=== PATIENT | female | born 1965 | race Hispanic/Latino ===

== ENCOUNTER 2017-07-25 15:26 | Emergency (ER) | payer MEDICARE ==
[~2017-07-25 15:26] MED LIST: ARIP20TA10 PO; BUSP15TA3 PO; CALC0.5C11 PO; CALC600T12 PO; CARB10DR OS; CARB25DR OP; CHOL200016 PO; CYCL12OS OS; DIVA500T52 PO; DOCU-116 PO; ESOM40CA PO; EZET10 PO; FENO160T16 PO; FISH1CAP49 PO; HYDR-2534 PO; LEVO175T4 PO; LEVO200T5 PO; NITR0.4T SL; POLY17PO3 PO; VALS80TA29 PO; VERA-7 PO; isosorbide PO; multivitamin PO; prednisolone OS
== END 2017-07-25 17:21 | disposition home or self-care (01) ==
LOC: EDH 15:26
DX: S39.82XA Other specified injuries of lower back, initial encounter (principal); S09.8XXA Other specified injuries of head, initial encounter; I10 Essential (primary) hypertension; E07.9 Disorder of thyroid, unspecified; E78.5 Hyperlipidemia, unspecified; K21.9 Gastro-esophageal reflux disease without esophagitis; Z88.6 Allergy status to analgesic agent; Z88.2 Allergy status to sulfonamides; Z88.5 Allergy status to narcotic agent; Z88.8 Allergy status to other drugs, medicaments and biological substances; W18.39XA Other fall on same level, initial encounter; Y93.01 Activity, walking, marching and hiking; Y92.89 Other specified places as the place of occurrence of the external cause; Y99.8 Other external cause status
CPT/HCPCS: 70450; 72100; 72220

== ENCOUNTER → 2022-07-06 | Emergency (ER) | payer MEDICARE ==
[~2022-07-06] VITALS: Ht 157.5 cm; Wt 108.4 kg
[~2022-07-06] MED LIST changes: -ARIP20TA10 PO; +ARIP20TA21 PO; +CALC-1125 PO; -CALC600T12 PO; -EZET10 PO; +EZET10TA13 PO; -HYDR-2534 PO; +HYDR50TA PO; -POLY17PO3 PO; +POLY17PO52 PO; -VALS80TA29 PO; +VALS80TA30 PO; -VERA-7 PO; +VERA240T95 PO
[2022-07-06 16:35] VITALS: BP 142/90
[2022-07-06 17:02] LABS: BASOPHILS % (AUTO) 0.7 % (0.0-5.0); EOSINOPHILS % (AUTO) 5.5 % (0.0-8.0); HEMATOCRIT 35.4 % (36-48); MEAN CORPUSCULAR HEMOGLOBIN 26.4 pg (27.0-33.0); MEAN CORPUSCULAR HGB CONC 32.2 g/dL (32.0-36.0); MEAN CORPUSCULAR VOLUME 81.9 fL (79-99); MONOCYTES % (AUTO) 6.5 % (3.0-13.0); NEUTROPHILS % (AUTO) 63.1 % (40.0-77.0); PLATELET COUNT (AUTO) 280 K/uL (130-400); RED BLOOD CELL COUNT(AUTO) 4.32 MIL/uL (4.00-5.50); RED CELL DISTRIBUTION WIDTH 17.1 % (11.0-15.5); WHITE BLOOD COUNT (AUTO) 8.8 K/uL (4.8-10.8)
[2022-07-06 17:12] LABS: POTASSIUM 3.1 mmol/L (3.5-5.1)
[2022-07-06 17:22] LABS: ALBUMIN 3.5 g/dL (3.5-5.0); TOTAL PROTEIN, SERUM 7.9 g/dL (6.0-8.3)
== END ==
LOC: EDH 16:26
DX: R51.9 Headache, unspecified (principal); Z53.21 Procedure and treatment not carried out due to patient leaving prior to being seen by health care provider
CPT/HCPCS: 36415; 80053; 84484; 85025; 93005

== ENCOUNTER 2022-07-11 01:52 | Emergency (ER) | payer MEDICARE ==
[~2022-07-11] VITALS: Ht 162.6 cm; Wt 99.8 kg
[2022-07-11 01:54] VITALS: BP 119/70
== END 2022-07-11 02:23 | disposition left against medical advice (07) ==
LOC: EDH 01:52
DX: R11.2 Nausea with vomiting, unspecified (principal); R19.7 Diarrhea, unspecified; Z53.21 Procedure and treatment not carried out due to patient leaving prior to being seen by health care provider

== ENCOUNTER 2022-07-19 23:51 | Emergency (ER) | payer MEDICARE ==
[~2022-07-19] VITALS: Ht 157.5 cm; Wt 108.9 kg
[2022-07-20 00:28] LABS: BASOPHILS % (AUTO) 0.5 % (0.0-5.0); EOSINOPHILS % (AUTO) 0.8 % (0.0-8.0); HEMATOCRIT 36.1 % (36-48); LYMPHOCYTES % (AUTO) 20.1 % (21.0-51.0); MEAN CORPUSCULAR HEMOGLOBIN 26.1 pg (27.0-33.0); MEAN CORPUSCULAR HGB CONC 32.7 g/dL (32.0-36.0); MEAN CORPUSCULAR VOLUME 79.9 fL (79-99); MONOCYTES % (AUTO) 7.2 % (3.0-13.0); PLATELET COUNT (AUTO) 361 K/uL (130-400); RED BLOOD CELL COUNT(AUTO) 4.52 MIL/uL (4.00-5.50); RED CELL DISTRIBUTION WIDTH 17.7 % (11.0-15.5)
[2022-07-20 00:38] LABS: CARBON DIOXIDE 30 mmol/L (21-32); CHLORIDE 99 mmol/L (101-111); CREATININE 0.9 mg/dL (0.5-1.5); GLOMERULAR FILTR. RATE CALC 69 mL/min (>60); GLUCOSE,RANDOM 117 mg/dL (70-105); POTASSIUM 3.4 mmol/L (3.5-5.1); SODIUM SERUM 139 mmol/L (136-145); UREA NITROGEN, BLOOD 12 mg/dL (7-18)
[2022-07-20 00:41] LABS: APPEARANCE,URINE CLEAR (CLEAR); BILIRUBIN,URINE NEGATIVE (NEGATIVE); COLOR,URINE YELLOW (YELLOW); GLUCOSE, URINE (UA) NEGATIVE (NEGATIVE); KETONES,URINE NEGATIVE (NEGATIVE); LEUKOCYTE ESTERASE ,URINE NEGATIVE Leu/uL (NEGATIVE); NITRATE,URINE NEGATIVE (NEGATIVE); OCCULT BLOOD,URINE NEGATIVE (NEGATIVE); PH,URINE 5.5 (5.0-8.0); PROTEIN,URINE 20 mg/dL (NEGATIVE); UROBILINOGEN,URINE 0.2 mg/dL (0.2-1.0)
[2022-07-20 00:42] LABS: ALANINE AMINOTRANSFERASE 40 U/L (12-78); ALBUMIN 3.7 g/dL (3.5-5.0); ALCOHOL, BLOOD < 3 mg/dL (0-10); ASPARTATE AMINOTRANSFERASE 50 U/L (10-37); TOTAL PROTEIN, SERUM 8.1 g/dL (6.0-8.3)
[2022-07-20 00:47] LABS: ACETAMINOPHEN < 1 mcg/mL (10-30); SALICYLATE < 2.8 mg/dL (2.8-20.0)
[2022-07-20 00:49] LABS: AMPHET/METH SCREEN,URINE NEGATIVE (NEGATIVE); BARBITURATE SCREEN, URINE NEGATIVE (NEGATIVE); BENZODIAZEPINES SCREEN,URINE NEGATIVE (NEGATIVE); CANNABINOID SCREEN,URINE NEGATIVE (NEGATIVE); COCAINE SCREEN,URINE NEGATIVE (NEGATIVE); OPIATE SCREEN,URINE NEGATIVE (NEGATIVE); PHENCYCLIDINE SCREEN,URINE NEGATIVE (NEGATIVE)
[2022-07-20 01:32] VITALS: BP 156/82
== END 2022-07-20 01:47 | disposition home or self-care (01) ==
LOC: EDH 23:51
DX: F31.9 Bipolar disorder, unspecified (principal); I10 Essential (primary) hypertension; Z88.2 Allergy status to sulfonamides; Z88.6 Allergy status to analgesic agent; Z88.5 Allergy status to narcotic agent; Z88.8 Allergy status to other drugs, medicaments and biological substances; Z79.899 Other long term (current) drug therapy; Z90.49 Acquired absence of other specified parts of digestive tract; Z98.890 Other specified postprocedural states
CPT/HCPCS: 99284; 80053; 80305; 85025; 81003; 36415; G0481; 93005

== ENCOUNTER 2022-07-20 14:34 | Emergency (ER) | payer MEDICARE ==
[~2022-07-20] VITALS: Ht 167.6 cm; Wt 80.7 kg
[2022-07-20 15:16] LABS: APPEARANCE,URINE CLEAR (CLEAR); BILIRUBIN,URINE NEGATIVE (NEGATIVE); COLOR,URINE YELLOW (YELLOW); GLUCOSE, URINE (UA) NEGATIVE (NEGATIVE); KETONES,URINE NEGATIVE (NEGATIVE); LEUKOCYTE ESTERASE ,URINE NEGATIVE Leu/uL (NEGATIVE); NITRATE,URINE NEGATIVE (NEGATIVE); OCCULT BLOOD,URINE NEGATIVE (NEGATIVE); PH,URINE 5.5 (5.0-8.0); PROTEIN,URINE 30 mg/dL (NEGATIVE)
[2022-07-20 15:23] LABS: AMPHET/METH SCREEN,URINE NEGATIVE (NEGATIVE); BARBITURATE SCREEN, URINE NEGATIVE (NEGATIVE); BENZODIAZEPINES SCREEN,URINE POSITIVE (NEGATIVE); CANNABINOID SCREEN,URINE NEGATIVE (NEGATIVE); COCAINE SCREEN,URINE NEGATIVE (NEGATIVE); OPIATE SCREEN,URINE NEGATIVE (NEGATIVE); PHENCYCLIDINE SCREEN,URINE NEGATIVE (NEGATIVE)
[2022-07-20 15:27] LABS: MUCUS,URINE FEW LPF (None Seen); SQUAMOUS EPITHELIAL CELL,UR FEW /HPF (0-2)
[2022-07-20 18:30] VITALS: BP 142/61
== END 2022-07-20 18:50 | disposition left against medical advice (07) ==
LOC: EDH 14:34
DX: F31.9 Bipolar disorder, unspecified (principal); Z79.899 Other long term (current) drug therapy; Z88.2 Allergy status to sulfonamides; Z88.5 Allergy status to narcotic agent; Z88.6 Allergy status to analgesic agent; Z88.8 Allergy status to other drugs, medicaments and biological substances; Z95.5 Presence of coronary angioplasty implant and graft; Z98.890 Other specified postprocedural states
CPT/HCPCS: 80305; 81001; 93005

== ENCOUNTER 2022-07-28 18:11 | Emergency (ER) | payer OTHER, MEDICARE ==
[~2022-07-28] VITALS: Ht 157.5 cm; Wt 86.2 kg
[2022-07-28 19:30] VITALS: BP 141/68
[2022-07-28] MEDS ORDERED: ACETAMINOPHEN 325 MG TAB ONE (19:46)
[2022-07-28] MEDS ORDERED: ACETAMINOPHEN 325 MG TAB PO ONE (20:00)
== END 2022-07-28 19:58 | disposition home or self-care (01) ==
LOC: EDH 18:11
DX: S96.911A Strain of unspecified muscle and tendon at ankle and foot level, right foot, initial encounter (principal); S90.421A Blister (nonthermal), right great toe, initial encounter; I10 Essential (primary) hypertension; F20.9 Schizophrenia, unspecified; F31.9 Bipolar disorder, unspecified; Z79.899 Other long term (current) drug therapy; Z88.2 Allergy status to sulfonamides; Z88.5 Allergy status to narcotic agent; Z88.6 Allergy status to analgesic agent; Z88.8 Allergy status to other drugs, medicaments and biological substances; Z95.5 Presence of coronary angioplasty implant and graft; W01.0XXA Fall on same level from slipping, tripping and stumbling without subsequent striking against object, initial encounter; Y93.89 Activity, other specified; Y92.89 Other specified places as the place of occurrence of the external cause; Y99.8 Other external cause status
CPT/HCPCS: 73610

== ENCOUNTER 2022-07-29 01:22 | Emergency (ER) | payer OTHER, MEDICARE ==
[2022-07-29 03:47] LABS: BASOPHILS % (AUTO) 0.6 % (0.0-5.0); EOSINOPHILS % (AUTO) 1.2 % (0.0-8.0); LYMPHOCYTES % (AUTO) 20.2 % (21.0-51.0); MEAN CORPUSCULAR HEMOGLOBIN 26.3 pg (27.0-33.0); MEAN CORPUSCULAR HGB CONC 31.9 g/dL (32.0-36.0); MEAN CORPUSCULAR VOLUME 82.4 fL (79-99); MONOCYTES % (AUTO) 6.9 % (3.0-13.0); NEUTROPHILS % (AUTO) 70.7 % (40.0-77.0); PLATELET COUNT (AUTO) 303 K/uL (130-400); RED BLOOD CELL COUNT(AUTO) 3.76 MIL/uL (4.00-5.50); RED CELL DISTRIBUTION WIDTH 17.4 % (11.0-15.5)
[2022-07-29 03:58] LABS: CREATININE 0.8 mg/dL (0.5-1.5)
[2022-07-29 04:00] LABS: POTASSIUM 2.7 mmol/L (3.5-5.1)
[2022-07-29 04:02] LABS: TOTAL PROTEIN, SERUM 6.7 g/dL (6.0-8.3)
[2022-07-29 04:23] LABS: APPEARANCE,URINE CLEAR (CLEAR); BILIRUBIN,URINE NEGATIVE (NEGATIVE); COLOR,URINE YELLOW (YELLOW); GLUCOSE, URINE (UA) NEGATIVE (NEGATIVE); KETONES,URINE NEGATIVE (NEGATIVE); LEUKOCYTE ESTERASE ,URINE 500 Leu/uL (NEGATIVE); NITRATE,URINE NEGATIVE (NEGATIVE); OCCULT BLOOD,URINE NEGATIVE (NEGATIVE); PROTEIN,URINE 20 mg/dL (NEGATIVE); UROBILINOGEN,URINE 0.2 mg/dL (0.2-1.0)
[2022-07-29 04:30] LABS: MUCUS,URINE RARE LPF (None Seen); SQUAMOUS EPITHELIAL CELL,UR FEW /HPF (0-2)
[2022-07-29] MEDS ORDERED: POTASSIUM CHLORIDE 10% ELIXIR 20 MEQ/15 ML UDCUP PO ONE (04:30)
[2022-07-29] MEDS ORDERED: CEFTRIAXONE 1G VIAL IVP ONE (05:30)
[2022-07-29] MEDS ORDERED: DOXYCYCLINE HYCLATE 100 MG TABLET PO SCH (05:30)
[2022-07-29] MEDS ORDERED: DIPHENOXYLATE HCL/ATROPINE 2.5/0.025 MG TAB PO ONE (06:30)
[2022-07-29 06:45] VITALS: BP 121/68
== END 2022-07-29 09:36 | disposition left against medical advice (07) ==
LOC: EDH 01:22
DX: E87.6 Hypokalemia (principal); F20.9 Schizophrenia, unspecified; F31.9 Bipolar disorder, unspecified; F41.9 Anxiety disorder, unspecified; I10 Essential (primary) hypertension; I48.91 Unspecified atrial fibrillation; Z79.899 Other long term (current) drug therapy; Z88.2 Allergy status to sulfonamides; Z88.5 Allergy status to narcotic agent; Z88.6 Allergy status to analgesic agent; Z88.8 Allergy status to other drugs, medicaments and biological substances; Z95.5 Presence of coronary angioplasty implant and graft
CPT/HCPCS: 99284; 96374; 80053; 84703; 83690; 85025; 87210; 87088; 87797; 87486; 81001; 36415; 93005; J0696

== ENCOUNTER → 2022-12-04 | Emergency (ER) | payer MEDICARE ==
[~2022-12-04] VITALS: Ht 157.5 cm; Wt 101.6 kg
[2022-12-04 06:08] VITALS: BP 131/83
[2022-12-04 06:41] LABS: BASOPHILS % (AUTO) 0.5 % (0.0-5.0); HEMATOCRIT 35.8 % (36-48); LYMPHOCYTES % (AUTO) 15.9 % (21.0-51.0); MEAN CORPUSCULAR HEMOGLOBIN 24.8 pg (27.0-33.0); MEAN CORPUSCULAR VOLUME 80.1 fL (79-99); MONOCYTES % (AUTO) 7.6 % (3.0-13.0); NEUTROPHILS % (AUTO) 73.4 % (40.0-77.0); PLATELET COUNT (AUTO) 345 K/uL (130-400); RED BLOOD CELL COUNT(AUTO) 4.47 MIL/uL (4.00-5.50); RED CELL DISTRIBUTION WIDTH 18.2 % (11.0-15.5); WHITE BLOOD COUNT (AUTO) 11.2 K/uL (4.8-10.8)
[2022-12-04 07:09] LABS: AMPHET/METH SCREEN,URINE NEGATIVE (NEGATIVE); BARBITURATE SCREEN, URINE NEGATIVE (NEGATIVE); BENZODIAZEPINES SCREEN,URINE NEGATIVE (NEGATIVE); CANNABINOID SCREEN,URINE NEGATIVE (NEGATIVE); COCAINE SCREEN,URINE NEGATIVE (NEGATIVE); OPIATE SCREEN,URINE NEGATIVE (NEGATIVE); PHENCYCLIDINE SCREEN,URINE NEGATIVE (NEGATIVE)
[2022-12-04 07:10] LABS: ALANINE AMINOTRANSFERASE 22 U/L (12-78); ALBUMIN 3.4 g/dL (3.5-5.0); ASPARTATE AMINOTRANSFERASE 23 U/L (10-37); CARBON DIOXIDE 33 mmol/L (21-32); CHLORIDE 102 mmol/L (101-111); CREATININE 0.8 mg/dL (0.5-1.5); GLOMERULAR FILTR. RATE CALC 86 mL/min (>90); GLUCOSE,RANDOM 119 mg/dL (70-105); POTASSIUM 3.2 mmol/L (3.5-5.1); SODIUM SERUM 141 mmol/L (136-145); TOTAL PROTEIN, SERUM 7.9 g/dL (6.0-8.3); UREA NITROGEN, BLOOD 10 mg/dL (7-18)
[2022-12-04 07:30] LABS: APPEARANCE,URINE CLEAR (CLEAR); BILIRUBIN,URINE NEGATIVE (NEGATIVE); COLOR,URINE YELLOW (YELLOW); GLUCOSE, URINE (UA) NEGATIVE (NEGATIVE); KETONES,URINE NEGATIVE (NEGATIVE); LEUKOCYTE ESTERASE ,URINE 25 Leu/uL (NEGATIVE); NITRATE,URINE NEGATIVE (NEGATIVE); OCCULT BLOOD,URINE NEGATIVE (NEGATIVE); PH,URINE 5.5 (5.0-8.0); PROTEIN,URINE 20 mg/dL (NEGATIVE); UROBILINOGEN,URINE 0.2 mg/dL (0.2-1.0)
[2022-12-04 07:51] LABS: MUCUS,URINE FEW LPF (None Seen); RBC,URINE 0-1 /HPF (0-1); SQUAMOUS EPITHELIAL CELL,UR RARE /HPF (0-2)
[2022-12-04 07:53] LABS: SALICYLATE < 2.8 mg/dL (2.8-20.0)
[2022-12-04 07:54] LABS: ACETAMINOPHEN < 1 mcg/mL (10-30)
== END ==
LOC: EDH 05:52
DX: F20.9 Schizophrenia, unspecified (principal); F41.9 Anxiety disorder, unspecified; I10 Essential (primary) hypertension; I48.91 Unspecified atrial fibrillation; Z79.899 Other long term (current) drug therapy; Z88.2 Allergy status to sulfonamides; Z88.5 Allergy status to narcotic agent; Z88.6 Allergy status to analgesic agent; Z88.8 Allergy status to other drugs, medicaments and biological substances; Z95.5 Presence of coronary angioplasty implant and graft
CPT/HCPCS: 99283; 80053; 80305; 85025; 81001; 36415; G0481

== ENCOUNTER 2024-06-30 21:21 | Emergency (ER) | payer MEDICARE ==
[~2024-06-30 21:21] MED LIST changes: -ARIP20TA21 PO; +ARIP20TA63 PO; -EZET10TA13 PO; +EZET10TA81 PO
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
[2024-06-30 22:03] LABS: BASOPHILS # (AUTO) 0.07 K/uL (0.00-0.20); BASOPHILS % (AUTO) 0.7 % (0.0-5.0); EOSINOPHILS # (AUTO) 0.38 K/uL (0.00-0.70); EOSINOPHILS % (AUTO) 3.6 % (0.0-8.0); HEMATOCRIT 29.9 % (36-48); IMMATURE GRANULOCYTE ABSOLUTE 0.07 K/uL (0-1); LYMPHOCYTES # (AUTO) 2.4 K/uL (1.0-4.8); LYMPHOCYTES % (AUTO) 22.2 % (21.0-51.0); MEAN CORPUSCULAR HEMOGLOBIN 29.7 pg (27.0-33.0); MEAN CORPUSCULAR HGB CONC 32.8 g/dL (32.0-36.0); MEAN CORPUSCULAR VOLUME 90.6 fL (79-99); MONOCYTES # (AUTO) 0.8 K/uL (0.1-1.0); MONOCYTES % (AUTO) 7.3 % (3.0-13.0); NEUTROPHILS % (AUTO) 65.5 % (40.0-77.0); PLATELET COUNT (AUTO) 355 K/uL (130-400); RED CELL DISTRIBUTION WIDTH 14.6 % (11.0-15.5); WHITE BLOOD COUNT (AUTO) 10.7 K/uL (4.8-10.8)
--- NOTE | 2024-06-30 22:11 | HMCIMG ---
ANKLE COMP 3VWS RT HISTORY: Right ankle pain COMPARISON: None TECHNIQUE: 3 images of right ankle. FINDINGS: There is no acute displaced fracture or dislocation. There is soft tissue swelling. There is a calcaneal spur. Degenerative changes are seen. IMPRESSION: 1. Findings as described above.
[2024-06-30 22:13] LABS: CREATININE 1.3 mg/dL (0.5-1.0); POTASSIUM 3.6 mmol/L (3.5-5.1)
[2024-06-30] MEDS ORDERED: CEPH500T PO (22:59)
[2024-06-30] MEDS: ceFAZolin SODIUM 1 GM VIAL IVPB ONE (23:03)
[2024-06-30] MEDS: 0.9%NACL 1000ML 1,000 ML IV ONE (23:04)
[2024-06-30] MEDS: acetaMINOPHEN 500 MG TABLET PO ONE (23:04)
[2024-06-30 23:53] LABS: ADD UA MICROSCOPIC NO; APPEARANCE,URINE CLEAR (CLEAR); BILIRUBIN,URINE NEGATIVE (NEGATIVE); COLOR,URINE LIGHT-YELLOW (YELLOW); GLUCOSE, URINE (UA) NEGATIVE (NEGATIVE); KETONES,URINE NEGATIVE (NEGATIVE); LEUKOCYTE ESTERASE ,URINE NEGATIVE Leu/uL (NEGATIVE); NITRATE,URINE NEGATIVE (NEGATIVE); OCCULT BLOOD,URINE NEGATIVE (NEGATIVE); PROTEIN,URINE NEGATIVE (NEGATIVE); UROBILINOGEN,URINE 0.2 mg/dL (0.2-1.0)
--- NOTE | 2024-07-01 00:19 | NUR ---
Called Elvia Soto [phone]. She is unable to come apple picker patient, she took medications that make her too sleepy to drive. Silvina Justin does not have a way to pick her up. Ever Thomson is . and Brandon Akbar does not want to have anything to do with her. As per [place], the patient usually waits in er for the adult day care to pick her up. Patient goes to [facility] adult day care.
[2024-07-01 00:37] VITALS: BP 132/82; PULSE 82; RESP 16; TEMP 98.1; O2SAT 100
== END 2024-07-01 00:40 | disposition home or self-care (01) ==
LOC: EDH 21:21
DX: S96.811A Strain of other specified muscles and tendons at ankle and foot level, right foot, initial encounter (principal); L03.115 Cellulitis of right lower limb; F41.9 Anxiety disorder, unspecified; I10 Essential (primary) hypertension; I25.10 Atherosclerotic heart disease of native coronary artery without angina pectoris; Z79.890 Hormone replacement therapy; Z79.899 Other long term (current) drug therapy; Z88.2 Allergy status to sulfonamides; Z88.5 Allergy status to narcotic agent; Z88.6 Allergy status to analgesic agent; Z88.8 Allergy status to other drugs, medicaments and biological substances; Z90.89 Acquired absence of other organs; Z95.5 Presence of coronary angioplasty implant and graft; Z98.890 Other specified postprocedural states; X58.XXXA Exposure to other specified factors, initial encounter; Y93.89 Activity, other specified; Y92.89 Other specified places as the place of occurrence of the external cause; Y99.8 Other external cause status
CPT/HCPCS: 99284; 96365; 80048; 83880; 85025; 87040 ×2; 81003; 36415; 73610; J0690; J7030

== ENCOUNTER 2024-07-02 11:58 | Emergency (ER) | payer MEDICARE ==
[~2024-07-02] VITALS: Ht 162.6 cm; Wt 81.6 kg
[~2024-07-02 11:58] MED LIST changes: +CEPH500T PO
--- NOTE | 2024-07-02 12:51 | ERN ---
ED Note History of Present Illness Stated Complaint: NOT ON MEDS Chief Complaint: Manic Behavior Time Seen by MD: 12:09 Dictation: PATIENT IS A 58-YEAR-OLD FEMALE WITH A WAS REFERRED [place] [facility] [place]AL POLICE DEPARTMENT BECAUSE SHE HAD BEEN IN A SENIOR CARE AND HAD JUST BEEN DISCHARGED FROM ASSISTED. SHE HAS A PSYCH HISTORY AND WOULD TELL THE POLICE THAT SHE WAS HYPOTHERMIC AND NEEDED TO BE SEEN. SHE DENIES SUICIDAL OR HOMICIDAL IDEATION AT THIS TIME SHE IS CURRENTLY EATING LUNCH WE SPEAK. HOWEVER SHE DOES KEEP REPEATING THAT SHE IS HYPOTHERMIC BECAUSE IT IS COLD OUTSIDE. Patient does state though that she is having auditory hallucinations telling her to hurt somebody. Allergies: Coded Allergies: Sulfa (Sulfonamide Antibiotics) (Unverified Allergy, Unknown, 04/29/16) aspirin (Unverified Allergy, Unknown, 04/29/16) codeine (Unverified Allergy, Unknown, 04/29/16) diphenhydramine (Unverified Allergy, Unknown, 04/29/16) haloperidol (Unverified Allergy, Unknown, 04/29/16) morphine (Unverified Allergy, Unknown, 04/29/16) promethazine (Unverified Allergy, Unknown, 04/29/16) risperidone (Unverified Allergy, Unknown, 04/29/16) Home Meds Active Scripts Cephalexin (Cephalexin) 500 Mg Tablet, 1 TAB PO TID for 10 Days, #30 TAB 0 Refills Prov:SUSAN DAILY MD 06/30/24 Reported Medications Carboxymethyl/Glycerin/Poly80 (Refresh Optive Advanced Drops) 10 Ml Drops, 1 DROP OS DAILY, DROP 04/29/16 Cyclopentolate HCl (Cyclogyl 1% Ophth Soln) 20 Drop/Ml Opsol, 1 DROP OS DAILY, DROP 04/29/16 Cholecalciferol (Vitamin D3) (Vitamin D) 2,000 Unit Tablet, 2000 UNIT PO DAILY, TAB 04/29/16 [multivitamin] No Conflict Check, 1 TAB PO DAILY 04/29/16 Esomeprazole Magnesium (Nexium) 40 Mg Capsule.dr, 40 MG PO DAILY, CAP 04/29/16 Carboxymethylcell/Hypromellose (Genteal Gel Drops) 25 Ml Drp.lq.gel, 10 G OP AD 04/29/16 Fenofibrate (Fenofibrate) 160 Mg Tablet, 160 MG PO HS, TAB 04/29/16 Polyethylene Glycol 3350 (Polyethylene Glycol 3350) 17 Gm Powd.pack, 17 GM PO DAILY, APPL 04/29/16 [prednisolone ] No Conflict Check, 1 % OS QID 1 drop os 04/29/16 Nitroglycerin (Nitrostat) 0.4 Mg Tab.subl, 0.4 MG SL AD, TAB.SL 04/29/16 [isosorbide] No Conflict Check, 30 MG PO HS 04/29/16 Valsartan (Valsartan) 80 Mg Tablet, 0.5 TAB PO DAILY, TAB 04/29/16 [place]-3 Fatty Acids/Fish Oil (Fish Oil 1,000 mg Capsule) 1 Each Capsule, 2 TAB PO BID, CAP 04/29/16 Hydrochlorothiazide (Hydrochlorothiazide) 50 Mg Tablet, 50 MG PO DAILY, TAB 04/29/16 Divalproex Sodium (Divalproex Sodium ER) 500 Mg Tab.er.24h, 3 TAB PO HS, TAB 04/29/16 Aripiprazole (Aripiprazole) 20 Mg Tablet, 20 MG PO HS, TAB 04/29/16 Buspirone HCl (Buspirone HCl) 15 Mg Tablet, 15 MG PO BID, TAB 04/29/16 Docusate Sodium (Colace) 100 Mg Capsule, 100 MG PO TID, CAP 04/29/16 Calcitriol (Calcitriol) 0.5 Mcg Capsule, 0.5 MCG PO BID, CAP 04/29/16 Ezetimibe (Zetia) 10 Mg Tablet, 10 MG PO DAILY, TAB 04/29/16 Levothyroxine Sodium (Synthroid) 175 Mcg Tablet, 175 MCG PO DAILY, TAB sat and sun. 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 Surgical History: Other Surgical History Other: THYROIDECTOMY, CARDIAC STENTS, L RETINAL DETACHMENT, HE RNIA REPAIR Family History: Negative Social History: Negative History: Not Applicable RN Note Reviewed/Agreed w/PFSH: Yes Review of System Dictation CONSTITUTIONAL: Negative except for HPI HEAD/FACE: Negative except for HPI EENT: Negative except for HPI RESPIRATORY: Negative except for HPI GASTROINTESTINAL/ABDOMINAL: Negative except for HPI GENITOURINARY: Negative except for HPI MUSCULOSKELETAL: Negative except for HPI INTEGUMENTARY: Negative except for HPI NEUROLOGICAL/PSYCH: Negative except for HPI auditory hallucinations HEMATOLOGIC/LYMPHATIC: Negative except for HPI All Systems Negative, Except as noted above. 13 point review of systems assessed and all negative except for above. Initial Vital Sign VS Vital Signs Date Time Temp Pulse Resp B/P (MAP) Pulse Ox O2 Delivery O2 Flow Rate FiO2 07/02/24 12:01 98.4 85 14 138/92 99 Room Air 0 Physical Exam Dictation Vital Signs reviewed General Appearance: Alert, oriented x two, no acute distress, well developed, nourished. Head and Face: non-traumatic. Eyes: PERRL, pink conjunctivas, eyelid no trauma, anterior chamber with arcus senilis. Ears: Pinnas intact and no signs of trauma or erythema ear canals clear and no discharge TM no erythema Nose: No discharge, no bleeding. Oropharynx: Mouth normal, tongue pink, pharynx clear,no erythema, tonsils no exudates, no abscesses noted, mucous membrane moist Neck: Supple, non-tender, no thyromegaly, no masses, no JVD, no bruits Breast:Deferred Chest:No tenderness, no crepitus, no paradoxical movement, no retractions Lungs:Clear, well-ventilated, symmetric, no rales, no wheezing, no rhonchi, no stridor, good breath sounds bilaterally Heart: Regular rate, regular rhythm, no murmur, no gallops Vascular: no peripheral edema, Abdomen: Soft, positive bowel sounds, nondistended, no guarding, nontender, no rebound, no masses no hepatomegaly, no splenomegaly, no Ferrell's sign, no hernias. Rectal: Deferred Genital: Deferred Neurological: Normal speech, motor function intact, sensory function intact patient having auditory hallucinations telling her to hurt someone. Nonspecific who the patient is. Musculoskeletal: Neck nontender, full range of motion, back nontender, full range of motion, Extremities: nontender, full range of motion Skin: Color pink, dry, no turgor, no rash, no lacerations, no abrasions, no contusions. Lymphatic: Deferred Results (Laboratory/Radiology) Laboratory/Radiology Laboratory Tests Test 07/02/24 12:34 07/02/24 12:59 Urine Color LIGHT-YELLOW (YELLOW) Urine Appearance CLEAR (CLEAR) Urine pH 5.0 (5.0-8.0) Urine Specific [place] 1.008 (1.001-1.031) Urine Protein NEGATIVE mg/dL (NEGATIVE) Urine Glucose (UA) NEGATIVE mg/dL (NEGATIVE) Urine Ketones NEGATIVE mg/dL (NEGATIVE) Urine Occult Blood NEGATIVE (NEGATIVE) Urine Nitrate NEGATIVE (NEGATIVE) Urine Bilirubin NEGATIVE mg/dL (NEGATIVE) Urine Urobilinogen 0.2 mg/dL (0.2-1.0) Urine Leukocyte Esterase NEGATIVE Carolyn/uL Urine Opiates Screen NEGATIVE (NEGATIVE) Urine Barbiturates Screen NEGATIVE (NEGATIVE) Urine Phencyclidine Screen NEGATIVE (NEGATIVE) Urine Amphetamines Screen NEGATIVE (NEGATIVE) Urine Benzodiazepines Screen NEGATIVE (NEGATIVE) Urine Cocaine Screen NEGATIVE (NEGATIVE) Urine Marijuana (THC) Screen NEGATIVE (NEGATIVE) White Blood Count 9.6 K/uL (4.8-10.8) Red Blood Count 3.32 MIL/uL (4.00-5.50) L Hemoglobin 9.8 g/dL (12.0-16.0) L Hematocrit 30.5 % (36-48) L Mean Corpuscular Volume 91.9 fL (79-99) Mean Corpuscular Hemoglobin 29.5 pg (27.0-33.0) Mean Corpuscular Hemoglobin Concent 32.1 g/dL (32.0-36.0) Red Cell Distribution Width 14.8 % (11.0-15.5) Platelet Count 342 K/uL (130-400) Mean Platelet Volume 9.1 fL (7.5-10.5) Immature Granulocyte % (Auto) 0.5 % (0-1) Neutrophils (%) (Auto) 69.7 % (40.0-77.0) Lymphocytes (%) (Auto) 18.0 % (21.0-51.0) L Monocytes (%) (Auto) 6.4 % (3.0-13.0) Eosinophils (%) (Auto) 4.8 % (0.0-8.0) Basophils (%) (Auto) 0.6 % (0.0-5.0) Neutrophils # (Auto) 6.7 K/uL (1.8-7.7) Lymphocytes # (Auto) 1.7 K/uL (1.0-4.8) Monocytes # (Auto) 0.6 K/uL (0.1-1.0) Eosinophils # (Auto) 0.46 K/uL (0.00-0.70) Basophils # (Auto) 0.06 K/uL (0.00-0.20) Absolute Immature Granulocyte (auto 0.05 K/uL (0-1) Nucleated Red Blood Cells 0.0 % (0.0-0.19) Sodium Level 140 mmol/L (136-145) Potassium Level 3.4 mmol/L (3.5-5.1) L Chloride Level 103 mmol/L (101-111) Carbon Dioxide Level 32 mmol/L (21-32) Blood Urea Nitrogen 22 mg/dL (7-18) H Creatinine 1.0 mg/dL (0.5-1.0) Glomerular Filtration Rate Calc 65 mL/min (>90) Random Glucose 117 mg/dL (70-105) H Total Calcium 6.9 mg/dL (8.5-10.1) L Total Creatine Kinase 358 U/L (21-232) H Salicylates Level < 2.8 mg/dL (2.8-20.0) L Acetaminophen Level < 1 mcg/mL (10-30) L Serum Alcohol < 3 mg/dL (0-10) Labs Reviewed?: Yes ED Course ED Course Orders Procedure Category Date Status Time Drug Screen Urine LAB 07/02/24 Complete 12:49 Cbc With Differential LAB 07/02/24 Complete 12:49 Alcohol, Blood LAB 07/02/24 Complete 12:49 Salicylate LAB 07/02/24 Complete 12:49 Acetaminophen LAB 07/02/24 Complete 12:49 Urinalysis Profile LAB 07/02/24 Complete 12:49 Creatine Kinase, Total LAB 07/02/24 Complete 12:49 Basic Metabolic Panel LAB 07/02/24 Complete 12:49 Vital Signs Date Time Temp Pulse Resp B/P (MAP) Pulse Ox O2 Delivery O2 Flow Rate FiO2 07/02/24 12:01 98.4 85 14 138/92 99 Room Air 0 ONE THOUSAND SIX HUNDRED, PATIENT WAS SCREENED BY Punctil AND DOES NOT MEET CRITERIA FOR INPATIENT PSYCHIATRIC CARE. SHE WILL BE TREATED FOR HYPOKALEMIA DISCHARGED HOME TO HER FAMILY TO FOLLOW UP IN THE NEXT Medical Decision Making MDM MDM: DIFFERENTIAL DIAGNOSIS: SCHIZOPHRENIA/HALLUCINATION/BIPOLAR DECOMPENSATED/ELECTROLYTE IMBALANCE/DEHYDRATION COCAINE ABUSE/UTI RATIONALE: TESTS CONSIDERED AND ORDERED SECONDARY TO SHARED DECISION MAKING INCLUDE: LABS/UA PREVIOUS OUTSIDE RECORDS REVIEWED: OLD ER VISITS. RISK OF COMPLICATION AND/OR MORBIDITY OR MORTALITY OF PATIENT MANAGEMENT: NONE MEDICATIONS-PER MEDICATION RECONCILIATION NEED FOR HOSPITALIZATION: PATIENT DOES NOT MEET CRITERIA FOR HOSPITALIZATION. NONE NEED FOR EMERGENCY MAJOR/MINOR SURGERY: NO THERE ARE NO SOCIAL CONCERNS WITH THIS PATIENT. PRESCRIPTION DRUG MANAGEMENT NONE PRESCRIPTIONS WILL INCLUDE SYMPTOMATIC CARE PATIENT'S PRIOR EXTERNAL MEDICAL RECORDS FROM OTHER ER VISITS WERE REVIEWED BY ME INDICATED. PRIOR TESTING AND RESULTS FROM PREVIOUS VISITS WERE REVIEWED. PRIOR TESTS WERE TAKEN INTO ACCOUNT WITH MEDICAL DECISION MAKING AND RESOURCE UTILIZATION, INDEPENDENT HISTORIAN/HISTORIANS WERE USED TO OBTAIN COMPLETE MEDICAL HISTORY. I INDEPENDENTLY INTERPRETED THE TEST THAT WERE PERFORMED, RESULTS WERE REVIEWED BY ME AND CONSIDERED FINDINGS ON RADIOLOGY IF ORDERED. MEDICAL MANAGEMENT AND EXAMINATION INTERPRETATION DISCUSSIONS WERE HAD BY ME WITH OTHER QUALIFIED HEALTHCARE PROFESSIONALS INDICATED FOR THE PATIENT'S CARE. DX & DISP Disposition: Discharge Departure Impression: Primary Impression: Auditory hallucinations Additional Impressions: Anxiety, Hypokalemia, Elevated CK Condition: Stable Additional Instructions: FOLLOW-UP WITH PRIMARY CARE PROVIDER IN 1 TO 2 DAYS. TAKE MEDICATIONS DIRECTED HERE IN THE EMERGENCY ROOM. OKAY TO CONTINUE HOME MEDICATIONS UNLESS OTHERWISE DISCUSSED DURING YOUR VISIT IN THE EMERGENCY ROOM TODAY. RETURN TO YOUR NEAREST EMERGENCY ROOM IF SYMPTOMS WORSEN OR IF THERE IS NO IMPROVEMENT. CALL 911 IF YOU NEED IMMEDIATE ASSISTANCE. TAKE TYLENOL OR MOTRIN [id number] NEEDED AND IF NO CONTRAINDICATIONS ARE PRESENT. INCREASE ORAL HYDRATION. A WOUND CULTURE OR URINE CULTURE WAS ORDERED HERE IN THE EMERGENCY ROOM DEPARTMENT PLEASE FOLLOW-UP WITH PRIMARY CARE PROVIDER AND ADVISE THEM TO GET REPEAT PORTS FROM OUR FACILITY. IF YOU HAD ANY LOYD WRAP/SPLINTS THAT WERE APPLIED HERE, PLEASE DO NOT REMOVE THEM UNTIL YOU SEE YOUR PRIMARY CARE OR SPECIALTY. DIET AND ACTIVITY TOLERATED FOLLOW UP WITH YOUR PRIMARY CARE DOCTOR IN THE 1- 2 DAYS Referrals: MATTHEW LORD MD (PCP) Time of Disposition: 16:05 I have reviewed the case, and I agree with, Diagnosis and Plan PARTH CONTRERAS NP Jul 02, 2024 12:51
[2024-07-02 13:12] LABS: BASOPHILS # (AUTO) 0.06 K/uL (0.00-0.20); BASOPHILS % (AUTO) 0.6 % (0.0-5.0); EOSINOPHILS # (AUTO) 0.46 K/uL (0.00-0.70); EOSINOPHILS % (AUTO) 4.8 % (0.0-8.0); HEMATOCRIT 30.5 % (36-48); IMMATURE GRANULOCYTE ABSOLUTE 0.05 K/uL (0-1); LYMPHOCYTES # (AUTO) 1.7 K/uL (1.0-4.8); MEAN CORPUSCULAR HEMOGLOBIN 29.5 pg (27.0-33.0); MEAN CORPUSCULAR HGB CONC 32.1 g/dL (32.0-36.0); MEAN CORPUSCULAR VOLUME 91.9 fL (79-99); MONOCYTES # (AUTO) 0.6 K/uL (0.1-1.0); MONOCYTES % (AUTO) 6.4 % (3.0-13.0); NEUTROPHILS # (AUTO) 6.7 K/uL (1.8-7.7); NEUTROPHILS % (AUTO) 69.7 % (40.0-77.0); PLATELET COUNT (AUTO) 342 K/uL (130-400); RED BLOOD CELL COUNT(AUTO) 3.32 MIL/uL (4.00-5.50); RED CELL DISTRIBUTION WIDTH 14.8 % (11.0-15.5); WHITE BLOOD COUNT (AUTO) 9.6 K/uL (4.8-10.8)
[2024-07-02 13:21] LABS: CARBON DIOXIDE 32 mmol/L (21-32); CHLORIDE 103 mmol/L (101-111); GLOMERULAR FILTR. RATE CALC 65 mL/min (>90); GLUCOSE,RANDOM 117 mg/dL (70-105); POTASSIUM 3.4 mmol/L (3.5-5.1); SODIUM SERUM 140 mmol/L (136-145); UREA NITROGEN, BLOOD 22 mg/dL (7-18)
[2024-07-02 13:25] LABS: ALCOHOL, BLOOD < 3 mg/dL (0-10); CREATINE KINASE, TOTAL 358 U/L (21-232)
[2024-07-02 13:26] LABS: ACETAMINOPHEN < 1 mcg/mL (10-30); SALICYLATE < 2.8 mg/dL (2.8-20.0)
[2024-07-02 13:34] LABS: APPEARANCE,URINE CLEAR (CLEAR); BILIRUBIN,URINE NEGATIVE (NEGATIVE); GLUCOSE, URINE (UA) NEGATIVE (NEGATIVE); KETONES,URINE NEGATIVE (NEGATIVE); LEUKOCYTE ESTERASE ,URINE NEGATIVE Leu/uL (NEGATIVE); NITRATE,URINE NEGATIVE (NEGATIVE); OCCULT BLOOD,URINE NEGATIVE (NEGATIVE); PROTEIN,URINE NEGATIVE (NEGATIVE); UROBILINOGEN,URINE 0.2 mg/dL (0.2-1.0)
[2024-07-02 13:36] LABS: ADD UA MICROSCOPIC NO; COLOR,URINE LIGHT-YELLOW (YELLOW)
[2024-07-02 13:42] LABS: AMPHET/METH SCREEN,URINE NEGATIVE (NEGATIVE); BARBITURATE SCREEN, URINE NEGATIVE (NEGATIVE); BENZODIAZEPINES SCREEN,URINE NEGATIVE (NEGATIVE); CANNABINOID SCREEN,URINE NEGATIVE (NEGATIVE); COCAINE SCREEN,URINE NEGATIVE (NEGATIVE); OPIATE SCREEN,URINE NEGATIVE (NEGATIVE); PHENCYCLIDINE SCREEN,URINE NEGATIVE (NEGATIVE)
--- NOTE | 2024-07-02 14:30 | NUR ---
tropical screener in to see pt.
--- NOTE | 2024-07-02 16:07 | NUR ---
pt did not meet criteria and will be discharged.
[2024-07-02 16:09] VITALS: BP 145/84; PULSE 78; RESP 18; TEMP 98.3; O2SAT 98
[2024-07-02] MEDS ORDERED: PoTASSium BIcarbonate/CIT AC 25 MEQ TABLET.EFF PO ONE (16:30)
== END 2024-07-02 16:11 | disposition home or self-care (01) ==
LOC: EDBD 11:58 → EDH 11:58
DX: R44.0 Auditory hallucinations (principal); F41.9 Anxiety disorder, unspecified; E87.6 Hypokalemia; R74.8 Abnormal levels of other serum enzymes; F32.A Depression, unspecified; Z79.890 Hormone replacement therapy; Z79.899 Other long term (current) drug therapy; Z88.2 Allergy status to sulfonamides; Z88.5 Allergy status to narcotic agent; Z88.6 Allergy status to analgesic agent; Z88.8 Allergy status to other drugs, medicaments and biological substances; Z90.89 Acquired absence of other organs; Z95.5 Presence of coronary angioplasty implant and graft; Z98.890 Other specified postprocedural states
CPT/HCPCS: 99283; 82550; 80048; 80305; 85025; 36415; 81003; G0481

== ENCOUNTER 2024-07-02 23:27 | Emergency (ER) | payer MEDICARE ==
[~2024-07-02] VITALS: Ht 157.5 cm; Wt 91.6 kg
[2024-07-02 23:35] VITALS: BP 110/77; PULSE 92; RESP 18; TEMP 98.5; O2SAT 97
--- NOTE | 2024-07-03 00:01 | ERN ---
General Chief Complaint: Multiple Complaints Stated Complaint: MULTIPLE COMPLAINTS Time Seen by MD: 23:44 Time Seen by Midlevel: 23:44 Source: patient History of Present Illness Initial Comments Patient is a 50-year-old female presenting to the emergency department with multiple complaints. According to patient she was released from penitentiary and was kicked out of a halfway for behavioral issues. She called EMS and states she is having multiple complaints. Per EMS, patient reported a sore throat, cough, constipation, headache, leg pain, back pain, vaginal itching, and reports being hungry. When offered a sandwich she states she does not want to sandwich and wants a hot plate. She was seen in our emergency department earlier today for hallucinations where she had an extensive workup done that was all negative. After my evaluation patient states she only wants a ride back home. Allergies: Coded Allergies: Sulfa (Sulfonamide Antibiotics) (Unverified Allergy, Unknown, 04/29/16) aspirin (Unverified Allergy, Unknown, 04/29/16) codeine (Unverified Allergy, Unknown, 04/29/16) diphenhydramine (Unverified Allergy, Unknown, 04/29/16) haloperidol (Unverified Allergy, Unknown, 04/29/16) morphine (Unverified Allergy, Unknown, 04/29/16) promethazine (Unverified Allergy, Unknown, 04/29/16) risperidone (Unverified Allergy, Unknown, 04/29/16) Home Meds Active Scripts Cephalexin (Cephalexin) 500 Mg Tablet, 1 TAB PO TID for 10 Days, #30 TAB 0 Refills Prov:SUSAN DAILY MD 06/30/24 Reported Medications Carboxymethyl/Glycerin/Poly80 (Refresh Optive Advanced Drops) 10 Ml Drops, 1 DROP OS DAILY, DROP 04/29/16 Cyclopentolate HCl (Cyclogyl 1% Ophth Soln) 20 Drop/Ml Opsol, 1 DROP OS DAILY, DROP 04/29/16 Cholecalciferol (Vitamin D3) (Vitamin D) 2,000 Unit Tablet, 2000 UNIT PO DAILY, TAB 04/29/16 [multivitamin] No Conflict Check, 1 TAB PO DAILY 04/29/16 Esomeprazole Magnesium (Nexium) 40 Mg Capsule.dr, 40 MG PO DAILY, CAP 04/29/16 Carboxymethylcell/Hypromellose (Genteal Gel Drops) 25 Ml Drp.lq.gel, 10 G OP AD 04/29/16 Fenofibrate (Fenofibrate) 160 Mg Tablet, 160 MG PO HS, TAB 04/29/16 Polyethylene Glycol 3350 (Polyethylene Glycol 3350) 17 Gm Powd.pack, 17 GM PO DAILY, APPL 04/29/16 [prednisolone ] No Conflict Check, 1 % OS QID 1 drop os 04/29/16 Nitroglycerin (Nitrostat) 0.4 Mg Tab.subl, 0.4 MG SL AD, TAB.SL 04/29/16 [isosorbide] No Conflict Check, 30 MG PO HS 04/29/16 Valsartan (Valsartan) 80 Mg Tablet, 0.5 TAB PO DAILY, TAB 04/29/16 [place]-3 Fatty Acids/Fish Oil (Fish Oil 1,000 mg Capsule) 1 Each Capsule, 2 TAB PO BID, CAP 04/29/16 Hydrochlorothiazide (Hydrochlorothiazide) 50 Mg Tablet, 50 MG PO DAILY, TAB 04/29/16 Divalproex Sodium (Divalproex Sodium ER) 500 Mg Tab.er.24h, 3 TAB PO HS, TAB 04/29/16 Aripiprazole (Aripiprazole) 20 Mg Tablet, 20 MG PO HS, TAB 04/29/16 Buspirone HCl (Buspirone HCl) 15 Mg Tablet, 15 MG PO BID, TAB 04/29/16 Docusate Sodium (Colace) 100 Mg Capsule, 100 MG PO TID, CAP 04/29/16 Calcitriol (Calcitriol) 0.5 Mcg Capsule, 0.5 MCG PO BID, CAP 04/29/16 Ezetimibe (Zetia) 10 Mg Tablet, 10 MG PO DAILY, TAB 04/29/16 Levothyroxine Sodium (Synthroid) 175 Mcg Tablet, 175 MCG PO DAILY, TAB sat and sun. 04/29/16 Levothyroxine Sodium (Synthroid) 200 Mcg Tablet, 200 MCG PO DAILY, TAB mon-thu04/29/16 Verapamil HCl (Verapamil ER) 240 Mg Tablet.er, 240 MG PO DAILY, TAB 04/29/16 Calcium Carbonate (Calcium) 600 Mg Tablet, 600 MG PO TID, TAB 04/29/16 Past Medical History Past Medical History: Anxiety, Depression, Schizophrenia Medical History Other: BLIND LEFT EYE Past Surgical History: Other Surgical History Other: THYROIDECTOMY, CARDIAC STENTS, L RETINAL DETACHMENT, HERNIA REPAIR Family History Family History: Negative Social History Social History: Negative Female( History) History: Not Applicable ROS Dictation CONSTITUTIONAL: Negative except for HPI HEAD/FACE: Negative except for HPI EENT: Negative except for HPI RESPIRATORY: Negative except for HPI GASTROINTESTINAL/ABDOMINAL: Negative except for HPI GENITOURINARY: Negative except for HPI MUSCULOSKELETAL: Negative except for HPI INTEGUMENTARY: Negative except for HPI NEUROLOGICAL/PSYCH: Negative except for HPI HEMATOLOGIC/LYMPHATIC: Negative except for HPI All Systems Negative, Except as noted above. 13 point review of systems assessed and all negative except for above. Physical Exam Physical Exam Dictation PHYSICAL EXAM: GENERAL: alert,, awake oriented x 3 HEENT: EOMI, Sclera non icteric, moist mucosa NECK: Supple, no JVD, trachea midline LUNGS: Clear breath sounds bilaterally. No wheezes HEART: Regular rate and rhythm. Normal S1 and S2, without murmurs ABD: Abdomen soft, nontender. Bowel sounds present EXT: No clubbing or cyanosis, NEURO: Alert and oriented to person, follows commands MDM MDM: Patient is a 50-year-old female presenting to the emergency department with multiple complaints. According to patient she was released from penitentiary and was kicked out of a halfway for behavioral issues. She called EMS and states she is having multiple complaints. Per EMS, patient reported a sore throat, cough, constipation, headache, leg pain, back pain, vaginal itching, and reports being hungry. When offered a sandwich she states she does not want to sandwich and wants a hot plate. She was seen in our emergency department earlier today for hallucinations where she had an extensive workup done that was all negative. After my evaluation patient states she only wants a ride back home. On physical examination patient is in no acute respiratory distress. Her vital signs are stable. Patient just had blood work and urine performed hours ago earlier today. No need to repeat at this time. Her physical examination is reassuring. Patient is only requesting a ride back home. We will be discharging patient at this time. Patient is stable for discharge Differential diagnosis: Malingering, wellness examination, drug-seeking behavior There are no social concerns with this patient. Prescription drug management Prescriptions will include: None Medical management and examination interpretation discussions were had by me with other qualified healthcare professionals as indicated for the patient's care. ED Course Vital Signs Date Time Temp Pulse Resp B/P (MAP) Pulse Ox O2 Delivery O2 Flow Rate FiO2 07/02/24 23:35 98.4 92 18 110/77 97 Room Air 0 07/02/24 23:35 98.4 92 18 110/77 97 Room Air* 0 21 DX & DISP Disposition: Discharge Departure Impression: Primary Impression: Wellness examination Condition: Stable Referrals: MATTHEW LORD MD (PCP) Time of Disposition: 00:01 I have reviewed the case, and I agree with, Diagnosis and Plan I performed the substantive portion of the visit. I have reviewed and personally made and approve the management plan that is documented in the note by myself or the TIM. I acknowledge for responsibility for the patient's manage ment plan. HERB PARKER Jul 03, 2024 00:01
== END 2024-07-03 00:36 | disposition home or self-care (01) ==
LOC: EDH 23:27
DX: J02.9 Acute pharyngitis, unspecified (principal); R05.9 Cough, unspecified; R51.9 Headache, unspecified; R44.0 Auditory hallucinations; R74.8 Abnormal levels of other serum enzymes; E87.6 Hypokalemia; F32.A Depression, unspecified; F41.9 Anxiety disorder, unspecified; Z79.890 Hormone replacement therapy; Z79.899 Other long term (current) drug therapy; Z88.2 Allergy status to sulfonamides; Z88.5 Allergy status to narcotic agent; Z88.6 Allergy status to analgesic agent; Z88.8 Allergy status to other drugs, medicaments and biological substances; Z90.89 Acquired absence of other organs; Z95.5 Presence of coronary angioplasty implant and graft; Z98.890 Other specified postprocedural states
CPT/HCPCS: 82550; 80048; 80305; 85025; 81003; 36415; 99283 ×2; G0481; 99281

== ENCOUNTER 2024-07-04 15:24 | Emergency (ER) | payer MEDICARE ==
[~2024-07-04] VITALS: Ht 157.5 cm; Wt 91.6 kg
--- NOTE | 2024-07-04 15:26 | NUR ---
PER VEL, PT WAS NOT ACCEPTED INTO FACILITY. PT WAS A DROP OFF BY POLICE WITH A SECTION. PT NEEDS TO BE MEDICALLY CLEARED IN ORDER FOR HER TO GET AN ASSESSMENT. PER MARCELO, ONCE PTS HAS CLEARANCE, RESULTS CAN BE FAXED TO [facility] AND PT CAN BE SENT BACK TO FACILITY FOR EVAL SINCE PT HAS A SECTION.
--- NOTE | 2024-07-04 18:05 | ERN ---
General Chief Complaint: Medical Clearance Stated Complaint: MEDICAL CLEARANCE Time Seen by MD: 15:34 Time Seen by Midlevel: 15:34 Source: patient History of Present Illness Initial Comments 58-year-old female who presents to the ED by EMS referred from [facility] for medical clearance. Patient is sectioned for SI, HI, and psychosis. However, upon arriving to [facility] complaint of bilateral ankle pain. PMHx depression, bipolar, anxiety, schizophrenia Allergies: Coded Allergies: Sulfa (Sulfonamide Antibiotics) (Unverified Allergy, Unknown, 04/29/16) aspirin (Unverified Allergy, Unknown, 04/29/16) codeine (Unverified Allergy, Unknown, 04/29/16) diphenhydramine (Unverified Allergy, Unknown, 04/29/16) haloperidol (Unverified Allergy, Unknown, 04/29/16) morphine (Unverified Allergy, Unknown, 04/29/16) promethazine (Unverified Allergy, Unknown, 04/29/16) risperidone (Unverified Allergy, Unknown, 04/29/16) Home Meds Active Scripts Cephalexin (Cephalexin) 500 Mg Tablet, 1 TAB PO TID for 10 Days, #30 TAB 0 Refills Prov:SUSAN DAILY MD 06/30/24 Reported Medications Carboxymethyl/Glycerin/Poly80 (Refresh Optive Advanced Drops) 10 Ml Drops, 1 DROP OS DAILY, DROP 04/29/16 Cyclopentolate HCl (Cyclogyl 1% Ophth Soln) 20 Drop/Ml Opsol, 1 DROP OS DAILY, DROP 04/29/16 Cholecalciferol (Vitamin D3) (Vitamin D) 2,000 Unit Tablet, 2000 UNIT PO DAILY, TAB 04/29/16 [multivitamin] No Conflict Check, 1 TAB PO DAILY 04/29/16 Esomeprazole Magnesium (Nexium) 40 Mg Capsule.dr, 40 MG PO DAILY, CAP 04/29/16 Carboxymethylcell/Hypromellose (Genteal Gel Drops) 25 Ml Drp.lq.gel, 10 G OP AD 04/29/16 Fenofibrate (Fenofibrate) 160 Mg Tablet, 160 MG PO HS, TAB 04/29/16 Polyethylene Glycol 3350 (Polyethylene Glycol 3350) 17 Gm Powd.pack, 17 GM PO DAILY, APPL 04/29/16 [prednisolone ] No Conflict Check, 1 % OS QID 1 drop os 04/29/16 Nitroglycerin (Nitrostat) 0.4 Mg Tab.subl, 0.4 MG SL AD, TAB.SL 04/29/16 [isosorbide] No Conflict Check, 30 MG PO HS 04/29/16 Valsartan (Valsartan) 80 Mg Tablet, 0.5 TAB PO DAILY, TAB 04/29/16 [place]-3 Fatty Acids/Fish Oil (Fish Oil 1,000 mg Capsule) 1 Each Capsule, 2 TAB PO BID, CAP 04/29/16 Hydrochlorothiazide (Hydrochlorothiazide) 50 Mg Tablet, 50 MG PO DAILY, TAB 04/29/16 Divalproex Sodium (Divalproex Sodium ER) 500 Mg Tab.er.24h, 3 TAB PO HS, TAB 04/29/16 Aripiprazole (Aripiprazole) 20 Mg Tablet, 20 MG PO HS, TAB 04/29/16 Buspirone HCl (Buspirone HCl) 15 Mg Tablet, 15 MG PO BID, TAB 04/29/16 Docusate Sodium (Colace) 100 Mg Capsule, 100 MG PO TID, CAP 04/29/16 Calcitriol (Calcitriol) 0.5 Mcg Capsule, 0.5 MCG PO BID, CAP 04/29/16 Ezetimibe (Zetia) 10 Mg Tablet, 10 MG PO DAILY, TAB 04/29/16 Levothyroxine Sodium (Synthroid) 175 Mcg Tablet, 175 MCG PO DAILY, TAB sat and sun. 04/29/16 Levothyroxine Sodium (Synthroid) 200 Mcg Tablet, 200 MCG PO DAILY, TAB mon-thu04/29/16 Verapamil HCl (Verapamil ER) 240 Mg Tablet.er, 240 MG PO DAILY, TAB 04/29/16 Calcium Carbonate (Calcium) 600 Mg Tablet, 600 MG PO TID, TAB 04/29/16 Past Medical History Past Medical History: Anxiety, Bipolar, Depression, Schizophrenia Medical History Other: BLIND LEFT EYE Past Surgical History: Other Surgical History Other: THYROIDECTOMY, CARDIC STENTS, L RETINAL DETACHEMENT Family History Family History: Negative Social History Social History: Negative Female( History) History: Not Applicable ROS Dictation Constitutional: Negative for fever,chills, and weight loss Eyes: Negative for injury, pain,redness, and discharge ENT: Negative for injury,pain or swelling Cardiovascular: Negative for chest pain, palpitations, and edema Respiratory: Negative for shortness of breath, cough, and wheezing, Abdomen/GI: Negative for abdominal pain, nausea, vomiting, diarrhea, and constipation Back: Negative for injury and pain : Negative for painful urination, bleeding or discharge MS/Extremity: Positive for bilateral ankle pain Negative for injury and deformity Skin: Negative for rash, and discoloration Neuro: Negative for headache, weakness, numbness, tingling, and seizure Psych: Negative for suicide ideation, homicidal ideation, and hallucinations Physical Exam Physical Exam Dictation General: awake, alert, no acute distress Head/Face: Normocephalic, atraumatic Eyes: normal conjunctiva ENT: oral mucosa moist Neck: Normal range of motion Cardiovascular: RRR, normal peripheral perfusion Respiratory: CTAB, no respiratory distress Skin: Warm, dry, normal turgor, no rash MS/Extremity: Pulses equal, no cyanosis, neurovascular intact, FROM, bilateral lower extremity edema Neuro: COAx4, GCS 15, normal gait, Psych: Normal behavior, mood, and affect normal Results EKG/XRAY/US/CT/MRI X-RAY Comment REASON: Pain ORDERING PHYSICIAN: LILLIAM BRITO PROCEDURE: ANK3VW LUIS - ANKLE COMP 3+VWS LUIS ANKLE COMP 3+VWS LUIS REASON: Pain. COMPARISON: None TECHNIQUE: 6 images of bilateral ankles were obtained. FINDINGS: Soft tissue swelling is seen. There are bilateral calcaneal spurs. No acute displaced fracture or dislocation is seen. IMPRESSION: Findings at described above. [facility] MDM: Differential diagnosis: Fracture, sprain, strain Rationale: 58-year-old female who presents to the ED by EMS referred from [facility] for medical clearance. Patient is sectioned for SI, HI, and psychosis. However, upon arriving to [facility] complaint of bilateral ankle pain. PMHx depression, bipolar, anxiety, schizophrenia Bilateral ankle x-rays obtained with no indications of fractures or dislocations. Per physical examination patient is not tender upon palpation, bilateral edema noted to lower extremities, patient ambulating without pain. No further workup indicated due to no further symptoms. Patient was educated on findings and diagnosis. Patient is medically cleared for [facility] [employer]. There are no social concerns with this patient. I independently interpreted the test that were performed, results were reviewed by me and considered findings on radiology if ordered. Medical management and examination interpretation discussions were had by me with other qualified healthcare professionals as indicated for the patient's care. ED Course Orders Procedure Category Date Status Time Ankle Comp 3+Vws Luis RAD 07/04/24 Taken 16:10 Vital Signs Date Time Temp Pulse Resp B/P (MAP) Pulse Ox O2 Delivery O2 Flow Rate FiO2 07/04/24 16:19 98.1 88 18 127/73 99 Room Air* 0 21 07/04/24 15:33 97.9 88 19 105/77 98 Room Air 0 DX & DISP Disposition: Discharge Departure Impression: Primary Impression: Bilateral ankle pain Additional Impression: Medical clearance for psychiatric admission Condition: Stable Additional Instructions: Discharge home. Rest. Follow up with primary care DrOfelia in 24 hours. Return to the ER for any acute changes or worsening symptoms. If any medications were prescribed take as directed. Okay to continue home medications unless otherwise discussed during your visit in the emergency room today. Patient was also advised to follow-up with primary care physician in 1 to 2 days for continued monitoring. Referrals: MATTHEW LORD MD (PCP) I participated in the following activities of this patient's care: For this patient encounter, I reviewed the PA or INGOT BUGGY OPERATOR documentation, treatment plan, and medical decision making. I did not have [id number] time with this patient. I will sign as the reviewing DrOfelia And agree with the treatment plan and disposition. LILLIAM BRITO Jul 04, 2024 18:05
--- NOTE | 2024-07-04 18:20 | NUR ---
SPOKE TO STAFF AT [facility], MADE THEM AWARE OF PT MEDICAL CLEARANCE. PER STAFF, PT CAN BE SENT BACK FOR INTAKE ADMISSION EVAL.
--- NOTE | 2024-07-04 18:27 | NUR ---
CALLED [facility] PHONE NUMBERS FOR RIDE TO [place], NO ANSWER.
--- NOTE | 2024-07-04 18:28 | NUR ---
PT IS SECTIONED WITH [facility] TODAY. CALLED [facility] FOR RIDE FOR PT TO [facility]. PER IRON MINER, HE WILL SPEAK TO CANDACE AND WILL GIVE ME A CALL BACK.
--- NOTE | 2024-07-04 18:54 | HMCIMG ---
ANKLE COMP 3+VWS LUIS REASON: Pain. COMPARISON: None TECHNIQUE: 6 images of bilateral ankles were obtained. FINDINGS: Soft tissue swelling is seen. There are bilateral calcaneal spurs. No acute displaced fracture or dislocation is seen. IMPRESSION: Findings at described above.
--- NOTE | 2024-07-04 18:54 | NUR ---
[facility] HERE TO NUCLEAR EQUIPMENT OPERATOR PT AND TRANSFER BACK TO [facility]. OFFICER [facility] #[id number] HERE TO TRANSFER PT.
[2024-07-04 19:13] VITALS: BP 131/68; PULSE 74; RESP 18; TEMP 98.1; O2SAT 98
== END 2024-07-04 19:14 | disposition home or self-care (01) ==
LOC: EDH 15:24
DX: M25.571 Pain in right ankle and joints of right foot (principal); M25.572 Pain in left ankle and joints of left foot; F20.9 Schizophrenia, unspecified; F31.9 Bipolar disorder, unspecified; F41.9 Anxiety disorder, unspecified; Z79.890 Hormone replacement therapy; Z79.899 Other long term (current) drug therapy; Z88.2 Allergy status to sulfonamides; Z88.5 Allergy status to narcotic agent; Z88.6 Allergy status to analgesic agent; Z88.8 Allergy status to other drugs, medicaments and biological substances; Z90.89 Acquired absence of other organs
CPT/HCPCS: 99283

== ENCOUNTER 2024-07-09 02:43 | Emergency (ER) | payer MEDICARE ==
[~2024-07-09] VITALS: Ht 157.5 cm; Wt 91.6 kg
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
--- NOTE | 2024-07-09 04:01 | NUR ---
SPOKE WITH NBA VYAS NURSE AT [facility], WILL ACCEPT PATIENT IF MEDICALLY CLEAR. PATIENT DENIES SI/HI, DENIES A/V HALLUCINATIONS. REPORTED CHRONIC PEDAL EDEMA.
--- NOTE | 2024-07-09 04:12 | NUR ---
[facility] CONTACTED FOR TRANSFER [place] [facility]
[2024-07-09 04:23] VITALS: BP 132/82; PULSE 76; RESP 16; TEMP 97.3; O2SAT 97
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
== END 2024-07-09 04:33 | disposition short-term general hospital (02) ==
LOC: EDH 02:43
DX: T74.21XA Adult sexual abuse, confirmed, initial encounter (principal); F31.9 Bipolar disorder, unspecified; F20.9 Schizophrenia, unspecified; F41.9 Anxiety disorder, unspecified; Z79.890 Hormone replacement therapy; Z79.899 Other long term (current) drug therapy; Z88.2 Allergy status to sulfonamides; Z88.5 Allergy status to narcotic agent; Z88.6 Allergy status to analgesic agent; Z88.8 Allergy status to other drugs, medicaments and biological substances; Z90.89 Acquired absence of other organs; X58.XXXA Exposure to other specified factors, initial encounter; Y93.89 Activity, other specified; Y92.89 Other specified places as the place of occurrence of the external cause; Y99.8 Other external cause status
CPT/HCPCS: 99285

== ENCOUNTER 2024-07-13 02:32 | Emergency (ER) | payer MEDICARE ==
[~2024-07-13] VITALS: Ht 154.9 cm; Wt 68.0 kg
[2024-07-13 02:40] VITALS: BP 136/72; PULSE 64; RESP 16; TEMP 98.1; O2SAT 98
--- NOTE | 2024-07-13 03:04 | ERN ---
ED Note History of Present Illness Stated Complaint: LOWER RIGHT LEG PAIN Chief Complaint: Lower Extremity Pain/Injury Time Seen by MD: 02:58 Dictation: This is a 58-year-old obese female with multiple medical problems came in via EMS complaining of right lower extremity pain which is chronic. So reported bilateral lower extremity edema. No fevers chills or rigors She has been to this ER almost everyday with some complaint or the other. Inquiry her home situation is not stable. She also admits to being noncompliant at times but states that when she takes her medications regularly she feels much better. Temperature 98.4 pulse 64 respirations 16 blood pressure 134/62 with a pulse oximetry of 100% on room air Chronic medical problems include anxiety, bipolar, atrial fibrillation, hypercholesterolemia, hypertension, schizophrenia, coronary artery disease statu s post stents, history of thyroidectomy She has off and on ER visits for diarrhea as she takes and over indulging sometimes with Colace. Her she also claims that she is allergic to multiple medications. Allergies: Coded Allergies: Sulfa (Sulfonamide Antibiotics) (Unverified Allergy, Unknown, 04/29/16) aspirin (Unverified Allergy, Unknown, 04/29/16) codeine (Unverified Allergy, Unknown, 04/29/16) diphenhydramine (Unverified Allergy, Unknown, 04/29/16) haloperidol (Unverified Allergy, Unknown, 04/29/16) morphine (Unverified Allergy, Unknown, 04/29/16) promethazine (Unverified Allergy, Unknown, 04/29/16) risperidone (Unverified Allergy, Unknown, 04/29/16) Home Meds Active Scripts Furosemide (Lasix 40Mg Tab) 40 Mg Tablet, 2 TAB PO DAILY for 10 Days, #30 TAB 0 Refills Prov:SUSAN DAILY MD 07/13/24 Loratadine (Claritin) 10 Mg Capsule, 1 CAP PO DAILY for allergy symptoms for 30 Days, #30 CAP 0 Refills Prov:SUSAN DAILY MD 07/13/24 Fluticasone Propionate (Flonase Allergy Relief) 50 Mcg/Actuation [place].susp, 2 SPRAY NS DAILY for 30 Days, #1 CANISTER 0 Refills Prov:SUSAN DAILY MD 07/13/24 Cephalexin (Cephalexin) 500 Mg Tablet, 1 TAB PO TID for 10 Days, #30 TAB 0 Refills Prov:SUSAN DAILY MD 06/30/24 Reported Medications Carboxymethyl/Glycerin/Poly80 (Refresh Optive Advanced Drops) 10 Ml Drops, 1 DROP OS DAILY, DROP 04/29/16 Cyclopentolate HCl (Cyclogyl 1% Ophth Soln) 20 Drop/Ml Opsol, 1 DROP OS DAILY, DROP 04/29/16 Cholecalciferol (Vitamin D3) (Vitamin D) 2,000 Unit Tablet, 2000 UNIT PO DAILY, TAB 04/29/16 [multivitamin] No Conflict Check, 1 TAB PO DAILY 04/29/16 Esomeprazole Magnesium (Nexium) 40 Mg Capsule.dr, 40 MG PO DAILY, CAP 04/29/16 Carboxymethylcell/Hypromellose (Genteal Gel Drops) 25 Ml Drp.lq.gel, 10 G OP AD 04/29/16 Fenofibrate (Fenofibrate) 160 Mg Tablet, 160 MG PO HS, TAB 04/29/16 Polyethylene Glycol 3350 (Polyethylene Glycol 3350) 17 Gm Powd.pack, 17 GM PO DAILY, APPL 04/29/16 [prednisolone ] No Conflict Check, 1 % OS QID 1 drop os 04/29/16 Nitroglycerin (Nitrostat) 0.4 Mg Tab.subl, 0.4 MG SL AD, TAB.SL 04/29/16 [isosorbide] No Conflict Check, 30 MG PO HS 04/29/16 Valsartan (Valsartan) 80 Mg Tablet, 0.5 TAB PO DAILY, TAB 04/29/16 [place]-3 Fatty Acids/Fish Oil (Fish Oil 1,000 mg Capsule) 1 Each Capsule, 2 TAB PO BID, CAP 04/29/16 Hydrochlorothiazide (Hydrochlorothiazide) 50 Mg Tablet, 50 MG PO DAILY, TAB 04/29/16 Divalproex Sodium (Divalproex Sodium ER) 500 Mg Tab.er.24h, 3 TAB PO HS, TAB 04/29/16 Aripiprazole (Aripiprazole) 20 Mg Tablet, 20 MG PO HS, TAB 04/29/16 Buspirone HCl (Buspirone HCl) 15 Mg Tablet, 15 MG PO BID, TAB 04/29/16 Docusate Sodium (Colace) 100 Mg Capsule, 100 MG PO TID, CAP 04/29/16 Calcitriol (Calcitriol) 0.5 Mcg Capsule, 0.5 MCG PO BID, CAP 04/29/16 Ezetimibe (Zetia) 10 Mg Tablet, 10 MG PO DAILY, TAB 04/29/16 Levothyroxine Sodium (Synthroid) 175 Mcg Tablet, 175 MCG PO DAILY, TAB sat and sun. 04/29/16 Levothyroxine Sodium (Synthroid) 200 Mcg Tablet, 200 MCG PO DAILY, TAB mon-thu04/29/16 Verapamil HCl (Verapamil ER) 240 Mg Tablet.er, 240 MG PO DAILY, TAB 04/29/16 Calcium Carbonate (Calcium) 600 Mg Tablet, 600 MG PO TID, TAB 04/29/16 Past Medical History Past Medical History: Anxiety, Bipolar, Depression, Schizophrenia Additional Past Medical Hx: BLIND LEFT EYE Surgical History: Other Surgical History Other: THYROIDECTOMY, CARDIC STENTS, L RETINAL DETACHEMENT Family History: Negative Social History: Negative History: Not Applicable RN Note Reviewed/Agreed w/PFSH: Yes Review of System Dictation Constitutional: Negative for fever,chills, and weight loss Eyes: Negative for injury, pain,redness, and discharge ENT: Negative for injury,pain or swelling Cardiovascular: Negative for chest pain, palpitations, and edema Respiratory: Negative for shortness of breath, cough, and wheezing, Abdomen/GI: Negative for abdominal pain, nausea, vomiting, diarrhea, and constipation Back: Negative for injury and pain : Negative for injury, bleeding and discharge MS/Extremity: Negative for injury and deformity. Complaints of lower extremity pain but she is ambulating without any problems in the hallways. No history of any injury Skin: Negative for rash, and discoloration Neuro: Negative for headache, weakness, numbness, tingling, and seizure Psych: Negative for suicide ideation, homicidal ideation, and hallucinations Initial Vital Sign VS Vital Signs Date Time Temp Pulse Resp B/P (MAP) Pulse Ox O2 Delivery O2 Flow Rate FiO2 07/13/24 02:40 98.1 64 16 136/72 98 Room Air* 0 21 Physical Exam Dictation General: awake, alert, NAD Head/Face: Normocephalic, atraumatic Eyes: PERRL, EOMI, vision at baseline ENT: oral cavity clear, TMs clear, no signs of infection Neck: Trachea midline, supple, no nuchal rigidity Cardiovascular: RRR, normal S1/S2, No MRGs, no JVD Respiratory: CTAB, no respiratory distress, No rales or wheezes Abdomen: Soft, non-tender, non-distended, normal bowel sounds, no guarding or rebound. Skin: Warm, dry, normal turgor, no rash MS/Extremity: Pulses equal, no cyanosis, neurovascular intact, FROM Neuro: COAx4, GCS 15, strength 5/5, CN 2-12 intact, normal cerebellar exam, normal gait, Psych: Normal behavior, mood, and affect normal Extremities-1+ pitting edema without any palpable cords, Homans sign is negative tinea pedis Results (Laboratory/Radiology) Labs Reviewed?: Yes ED Course ED Course Vital Signs Date Time Temp Pulse Resp B/P (MAP) Pulse Ox O2 Delivery O2 Flow Rate FiO2 07/13/24 02:40 98.1 64 16 136/72 98 Room Air* 0 21 We will perform diagnostic labs, advanced imaging and administer medications according to the patient's complaint. Once the results are available, will review and personally interpreted the labs to rule out any acute life- threatening emergency the trach require immediate intervention and treatment. I will then re-evaluate the patient after treatment and diagnostic exams have return to determine whether the patient requires any further testing, can safely be discharged home or need further admission to hospital for additional treatment and evaluation. f Medical Decision Making MDM MDM: Differential diagnosis: Bilateral lower extremity edema-chronic venous insufficiency, noncompliance with her diuretic, arthritis and ankle sprains Rationale: Tests considered and ordered secondary to shared decision making include: Previous outside records reviewed: Old ER visits. Risk of complication and/or morbidity or mortality of patient management: None Medications-Per medication reconciliation Need for hospitalization: Patient does not meet criteria for hospitalization. Need for emergency major/minor surgery: No There are no social concerns with this patient. Prescription drug management Prescriptions will include symptomatic care Patient's prior external medical records from other ER visits were reviewed by me as indicated. Prior testing and results from previous visits were reviewed. Prior tests were taken into account with medical decision making and resource utilization, independent historian/historians were used to obtain complete medical history. I independently interpreted the test that were performed, results were reviewed by me and considered findings on radiology if ordered. Medical management and examination interpretation discussions were had by me with other qualified healthcare professionals as indicated for the patient's care. Problem List Problem List: (1) Bilateral edema of lower extremity (2) Right ankle strain DX & DISP Disposition: Discharge Departure Impression: Primary Impression: Bilateral edema of lower extremity Additional Impression: Right ankle strain Condition: Stable Scripts Furosemide (Lasix 40Mg Tab) 40 Mg Tablet 2 TAB PO DAILY for 10 Days, #30 TAB 0 Refills Prov: SUSAN DAILY MD 07/13/24 Loratadine (Claritin) 10 Mg Capsule 1 CAP PO DAILY for allergy symptoms for 30 Days, #30 CAP 0 Refills Prov: SUSAN DAILY MD 07/13/24 Fluticasone Propionate (Flonase Allergy Relief) 50 Mcg/Actuation [place].susp 2 SPRAY NS DAILY for 30 Days, #1 CANISTER 0 Refills Prov: SUSAN DAILY MD 07/13/24 Additional Instructions: Patient and the caregiver have been informed of all the diagnostic tests and the imaging conducted during the today's visit to the emergency room and has verbalized understanding of the results I have personally reviewed and interpreted all diagnostic exams performed here in the ER today as well as the vital signs documented by the nursing staff. The patient is now being discharged to home and should follow up with the primary care physician or the specialist as directed by the ER staff. Follow-up with primary care provider in 1 to 2 days. Take medications as directed here in the emergency room. Okay to continue home medications unless otherwise discussed during your visit in the emergency room today. Return to your nearest emergency room if symptoms worsen or if there is no improvement. Call 911 if you need immediate assistance. Take Tylenol or Motrin [id number] as needed and if no contraindications are present. Increase oral hydration. A wound culture or urine culture was ordered here in the emergency room department please follow-up with primary care provider and advise them to get repeat ports from our facility. If you had any Phillip wrap/splints that were applied here, please do not remove them until you see your primary care or specialty. Adverse effects of medications discussed Referrals: MATTHEW LORD MD (PCP) SUSAN DAILY MD Jul 13, 2024 03:04
[2024-07-13] MEDS ORDERED: FLUT9.9S NS (03:22)
[2024-07-13] MEDS ORDERED: LORA10CA PO (03:22)
[2024-07-13] MEDS ORDERED: FURO40TA7 PO (03:22)
== END 2024-07-13 03:26 | disposition home or self-care (01) ==
LOC: EDH 02:32
DX: S96.911A Strain of unspecified muscle and tendon at ankle and foot level, right foot, initial encounter (principal); R60.0 Localized edema; F20.9 Schizophrenia, unspecified; F31.9 Bipolar disorder, unspecified; F41.9 Anxiety disorder, unspecified; Z79.890 Hormone replacement therapy; Z79.899 Other long term (current) drug therapy; Z88.2 Allergy status to sulfonamides; Z88.5 Allergy status to narcotic agent; Z88.6 Allergy status to analgesic agent; Z88.8 Allergy status to other drugs, medicaments and biological substances; Z90.89 Acquired absence of other organs; X58.XXXA Exposure to other specified factors, initial encounter; Y93.89 Activity, other specified; Y92.89 Other specified places as the place of occurrence of the external cause; Y99.8 Other external cause status
CPT/HCPCS: 99283

== ENCOUNTER 2024-07-19 00:36 | Emergency (ER) | payer MEDICARE ==
[~2024-07-19 00:36] MED LIST changes: +FLUT9.9S NS; +FURO40TA7 PO; +LORA10CA PO
[2024-07-19 01:05] LABS: BASOPHILS # (AUTO) 0.11 K/uL (0.00-0.20); BASOPHILS % (AUTO) 0.8 % (0.0-5.0); EOSINOPHILS # (AUTO) 0.29 K/uL (0.00-0.70); EOSINOPHILS % (AUTO) 2.2 % (0.0-8.0); HEMATOCRIT 33.2 % (36-48); IMMATURE GRANULOCYTE ABSOLUTE 0.13 K/uL (0-1); LYMPHOCYTES % (AUTO) 15.3 % (21.0-51.0); MEAN CORPUSCULAR HEMOGLOBIN 29.4 pg (27.0-33.0); MEAN CORPUSCULAR HGB CONC 31.9 g/dL (32.0-36.0); MONOCYTES % (AUTO) 7.3 % (3.0-13.0); NEUTROPHILS # (AUTO) 9.5 K/uL (1.8-7.7); NEUTROPHILS % (AUTO) 73.4 % (40.0-77.0); NUCLEATED RED BLOOD CELLS 0.2 % (0.0-0.19); PLATELET COUNT (AUTO) 324 K/uL (130-400); RED BLOOD CELL COUNT(AUTO) 3.61 MIL/uL (4.00-5.50); RED CELL DISTRIBUTION WIDTH 15.2 % (11.0-15.5)
[2024-07-19 01:13] LABS: CARBON DIOXIDE 34 mmol/L (21-32); CHLORIDE 100 mmol/L (101-111); CREATININE 1.3 mg/dL (0.5-1.0); GLOMERULAR FILTR. RATE CALC 48 mL/min (>90); GLUCOSE,RANDOM 107 mg/dL (70-105); POTASSIUM 3.9 mmol/L (3.5-5.1); SODIUM SERUM 139 mmol/L (136-145); UREA NITROGEN, BLOOD 23 mg/dL (7-18)
[2024-07-19 01:16] LABS: ALCOHOL, BLOOD < 3 mg/dL (0-10)
[2024-07-19 01:19] LABS: ACETAMINOPHEN < 1 mcg/mL (10-30); SALICYLATE < 2.8 mg/dL (2.8-20.0)
[2024-07-19 01:20] LABS: APPEARANCE,URINE CLEAR (CLEAR); BILIRUBIN,URINE NEGATIVE (NEGATIVE); COLOR,URINE LIGHT-YELLOW (YELLOW); GLUCOSE, URINE (UA) NEGATIVE (NEGATIVE); KETONES,URINE NEGATIVE (NEGATIVE); LEUKOCYTE ESTERASE ,URINE NEGATIVE Leu/uL (NEGATIVE); NITRATE,URINE NEGATIVE (NEGATIVE); OCCULT BLOOD,URINE NEGATIVE (NEGATIVE); PH,URINE 7.5 (5.0-8.0); PROTEIN,URINE NEGATIVE (NEGATIVE); UROBILINOGEN,URINE 0.2 mg/dL (0.2-1.0)
[2024-07-19 01:21] LABS: ADD UA MICROSCOPIC NO
[2024-07-19 01:28] LABS: AMPHET/METH SCREEN,URINE NEGATIVE (NEGATIVE); BARBITURATE SCREEN, URINE NEGATIVE (NEGATIVE); BENZODIAZEPINES SCREEN,URINE NEGATIVE (NEGATIVE); CANNABINOID SCREEN,URINE NEGATIVE (NEGATIVE); COCAINE SCREEN,URINE NEGATIVE (NEGATIVE); OPIATE SCREEN,URINE NEGATIVE (NEGATIVE); PHENCYCLIDINE SCREEN,URINE NEGATIVE (NEGATIVE)
--- NOTE | 2024-07-19 01:50 | NUR ---
[facility] screener paged.
--- NOTE | 2024-07-19 01:55 | NUR ---
[facility] screener speaking with patient
[2024-07-19 02:00] VITALS: BP 126/78; PULSE 82; RESP 16; TEMP 98.1; O2SAT 99
--- NOTE | 2024-07-19 02:00 | NUR ---
Patient denied SI/HI to ER physician. patient reports wanting to sleep in ER.
--- NOTE | 2024-07-19 04:40 | NUR ---
patient walked out of ER. Patient did not sign ama forms. patient denies SI/HI
== END 2024-07-19 04:54 | disposition left against medical advice (07) ==
LOC: EDH 00:36
DX: Z00.8 Encounter for other general examination (principal)
CPT/HCPCS: 99283; 80048; 80305; 85025; 36415; 81003; G0481

== ENCOUNTER → 2024-08-09 | Emergency (ER) | payer MEDICARE ==
[2024-08-09 23:56] VITALS: BP 160/80; PULSE 98; RESP 18; TEMP 98.8
--- NOTE | 2024-08-10 01:24 | ERN ---
ED Note History of Present Illness Stated Complaint: COUGH, CONGESTION Chief Complaint: Cough Time Seen by MD: 00:34 Time Seen by Midlevel: 00:34 Dictation: The patient is a 58-year-old female with a history of diabetes, hypertension, left eye surgery who presents to the emergency department with complaints of dry cough, nasal congestion onset yesterday morning. Patient denies any fevers, vomiting or diarrhea. Denies any throat pain or ear pain. Allergies: Coded Allergies: Sulfa (Sulfonamide Antibiotics) (Unverified Allergy, Unknown, 04/29/16) aspirin (Unverified Allergy, Unknown, 04/29/16) codeine (Unverified Allergy, Unknown, 04/29/16) diphenhydramine (Unverified Allergy, Unknown, 04/29/16) haloperidol (Unverified Allergy, Unknown, 04/29/16) morphine (Unverified Allergy, Unknown, 04/29/16) promethazine (Unverified Allergy, Unknown, 04/29/16) risperidone (Unverified Allergy, Unknown, 04/29/16) Home Meds Active Scripts Furosemide (Lasix 40Mg Tab) 40 Mg Tablet, 2 TAB PO DAILY for 10 Days, #30 TAB 0 Refills Prov:SUSAN DAILY MD 07/13/24 Loratadine (Claritin) 10 Mg Capsule, 1 CAP PO DAILY for allergy symptoms for 30 Days, #30 CAP 0 Refills Prov:SUSAN DAILY MD 07/13/24 Fluticasone Propionate (Flonase Allergy Relief) 50 Mcg/Actuation [place].susp, 2 SPRAY NS DAILY for 30 Days, #1 CANISTER 0 Refills Prov:SUSAN DAILY MD 07/13/24 Cephalexin (Cephalexin) 500 Mg Tablet, 1 TAB PO TID for 10 Days, #30 TAB 0 Refills Prov:SUSAN DAILY MD 06/30/24 Reported Medications Carboxymethyl/Glycerin/Poly80 (Refresh Optive Advanced Drops) 10 Ml Drops, 1 DROP OS DAILY, DROP 04/29/16 Cyclopentolate HCl (Cyclogyl 1% Ophth Soln) 20 Drop/Ml Opsol, 1 DROP OS DAILY, DROP 04/29/16 Cholecalciferol (Vitamin D3) (Vitamin D) 2,000 Unit Tablet, 2000 UNIT PO DAILY, TAB 04/29/16 [multivitamin] No Conflict Check, 1 TAB PO DAILY 04/29/16 Esomeprazole Magnesium (Nexium) 40 Mg Capsule.dr, 40 MG PO DAILY, CAP 04/29/16 Carboxymethylcell/Hypromellose (Genteal Gel Drops) 25 Ml Drp.lq.gel, 10 G OP AD 04/29/16 Fenofibrate (Fenofibrate) 160 Mg Tablet, 160 MG PO HS, TAB 04/29/16 Polyethylene Glycol 3350 (Polyethylene Glycol 3350) 17 Gm Powd.pack, 17 GM PO DAILY, APPL 04/29/16 [prednisolone ] No Conflict Check, 1 % OS QID 1 drop os 04/29/16 Nitroglycerin (Nitrostat) 0.4 Mg Tab.subl, 0.4 MG SL AD, TAB.SL 04/29/16 [isosorbide] No Conflict Check, 30 MG PO HS 04/29/16 Valsartan (Valsartan) 80 Mg Tablet, 0.5 TAB PO DAILY, TAB 04/29/16 [place]-3 Fatty Acids/Fish Oil (Fish Oil 1,000 mg Capsule) 1 Each Capsule, 2 TAB PO BID, CAP 04/29/16 Hydrochlorothiazide (Hydrochlorothiazide) 50 Mg Tablet, 50 MG PO DAILY, TAB 04/29/16 Divalproex Sodium (Divalproex Sodium ER) 500 Mg Tab.er.24h, 3 TAB PO HS, TAB 04/29/16 Aripiprazole (Aripiprazole) 20 Mg Tablet, 20 MG PO HS, TAB 04/29/16 Buspirone HCl (Buspirone HCl) 15 Mg Tablet, 15 MG PO BID, TAB 04/29/16 Docusate Sodium (Colace) 100 Mg Capsule, 100 MG PO TID, CAP 04/29/16 Calcitriol (Calcitriol) 0.5 Mcg Capsule, 0.5 MCG PO BID, CAP 04/29/16 Ezetimibe (Zetia) 10 Mg Tablet, 10 MG PO DAILY, TAB 04/29/16 Levothyroxine Sodium (Synthroid) 175 Mcg Tablet, 175 MCG PO DAILY, TAB sat and sun. 04/29/16 Levothyroxine Sodium (Synthroid) 200 Mcg Tablet, 200 MCG PO DAILY, TAB mon-thu04/29/16 Verapamil HCl (Verapamil ER) 240 Mg Tablet.er, 240 MG PO DAILY, TAB 04/29/16 Calcium Carbonate (Calcium) 600 Mg Tablet, 600 MG PO TID, TAB 04/29/16 Past Medical History Past Medical History: Anxiety, Bipolar, Depression, Schizophrenia Additional Past Medical Hx: BLIND LEFT EYE Surgical History: Other Surgical History Other: THYROIDECTOMY, CARDIC STENTS, L RETINAL DETACHEMENT Family History: Negative Social History: Negative History: Not Applicable RN Note Reviewed/Agreed w/PFSH: Yes Review of System Dictation Constitutional: Negative for fever,chills, and weight loss Eyes: Negative for injury, pain,redness, and discharge ENT: Negative for injury,pain or swelling positive for nasal congestion Cardiovascular: Negative for chest pain, palpitations, and edema Respiratory: Negative for shortness of breath,and wheezing, positive for cough Abdomen/GI: Negative for abdominal pain, nausea, vomiting, diarrhea, and constipation Back: Negative for injury and pain : Negative for injury, bleeding and discharge MS/Extremity: Negative for injury and deformity Skin: Negative for rash, and discoloration Neuro: Negative for headache, weakness, numbness, tingling, and seizure Psych: Negative for suicide ideation, homicidal ideation, and hallucinations Initial Vital Sign VS Vital Signs Date Time Temp Pulse Resp B/P (MAP) Pulse Ox O2 Delivery O2 Flow Rate FiO2 08/09/24 23:56 98.8 98 18 160/80 97 Room Air 0 Physical Exam Dictation Vital Signs reviewed General Appearance: Alert, oriented x 3, no acute distress, well developed, nourished. Head and Face: non-traumatic. Eyes: Left eye opaque, pink conjunctivas, eyelid no trauma, anterior chamber with arcus senilis. Ears: Pinnas intact and no signs of trauma or erythema ear canals clear and no discharge TM no erythema Nose: No discharge, no bleeding. Oropharynx: Mouth normal, tongue pink. pharynx clear,no erythema, tonsils no exudates, no abscesses noted, mucous m embrane moist Neck: Supple, non-tender, no thyromegaly, no masses, no JVD, no bruits Breast:Deferred Chest:No tenderness, no crepitus, no paradoxical movement, no retractions Lungs:Clear, well-ventilated, symmetric, no rales, no wheezing, no rhonchi, no stridor, good breath sounds bilaterally Heart: Regular rate, regular rhythm, no murmur, no gallops Vascular: no peripheral edema, Abdomen: Soft, positive bowel sounds, nondistended, no guarding, nontender, no rebound, no masses no hepatomegaly, no splenomegaly, no Ferrell's sign, no hernias. Rectal: Deferred Genital: Deferred Neurological: Normal speech, motor function intact, sensory function intact Musculoskeletal: Neck nontender, full range of motion, back nontender, full range of motion, Extremities: nontender, full range of motion Skin: Color pink, dry, no turgor, no rash, no lacerations, no abrasions, no contusions. Lymphatic: Deferred Results (Laboratory/Radiology) Labs Reviewed?: Yes ED Course ED Course Orders Procedure Category Date Status Time Influenza Type A & B, LAB 08/10/24 Logged Rapid 00:54 Covid19 (Sars Antigen LAB 08/10/24 Logged Rapid) 00:54 Chest 1vw RAD 08/10/24 Logged 00:54 Vital Signs Date Time Temp Pulse Resp B/P (MAP) Pulse Ox O2 Delivery O2 Flow Rate FiO2 08/09/24 23:56 98.8 98 18 160/80 97 Room Air 0 Medical Decision Making MDM The patient is a 58-year-old female with a history of diabetes, hypertension, left eye surgery who presents to the emergency department with complaints of dry cough, nasal congestion onset yesterday morning. Patient denies any fevers, vomiting or diarrhea. Denies any throat pain or ear pain. patient eloped for ED DX & DISP Disposition: AMA Departure Condition: Stable Referrals: MATTHEW LORD MD (PCP) GOPAL ARANA Aug 10, 2024 01:24
--- NOTE | 2024-08-10 01:48 | NUR ---
CALLED FOR PT IN [place] TO MOVE TO ; NO RESPONSE; PT NOT FOUND IN [place].
== END ==
LOC: EDH 23:55
DX: R05.9 Cough, unspecified (principal); R09.81 Nasal congestion; F20.9 Schizophrenia, unspecified; F31.9 Bipolar disorder, unspecified; F41.9 Anxiety disorder, unspecified; Z79.890 Hormone replacement therapy; Z79.899 Other long term (current) drug therapy; Z88.2 Allergy status to sulfonamides; Z88.5 Allergy status to narcotic agent; Z88.6 Allergy status to analgesic agent; Z88.8 Allergy status to other drugs, medicaments and biological substances; Z90.89 Acquired absence of other organs
CPT/HCPCS: 99281; 99283

== ENCOUNTER 2024-08-25 02:44 | Emergency (ER) | payer MEDICARE ==
[~2024-08-25] VITALS: Ht 154.9 cm; Wt 122.0 kg
--- NOTE | 2024-08-25 03:57 | ERN ---
General Chief Complaint: Mechanical Fall Stated Complaint: C/O PAIN TO RT ANKLE AND LEFT RIB AREA AFTER FALL Time Seen by MD: 02:48 Time Seen by Midlevel: 02:48 Source: patient History of Present Illness Initial Comments The patient is a 58-year-old female with a past medical history of multiple psychiatric problems and malingering presenting to the emergency department with left lower rib pain and left-sided abdominal pain following a mechanical ground level fall. The patient reports falling once several days ago and again tonight. She reports pain to the left side of her body. She denies any head injury or loss of consciousness. Denies being on any blood thinners. When she fell down several days ago she was evaluated by primary care doctor who performed x-rays that were all negative however he advised her to report to the ER if the symptoms persisted. Allergies: Coded Allergies: Sulfa (Sulfonamide Antibiotics) (Unverified Allergy, Unknown, 04/29/16) aspirin (Unverified Allergy, Unknown, 04/29/16) codeine (Unverified Allergy, Unknown, 04/29/16) diphenhydramine (Unverified Allergy, Unknown, 04/29/16) haloperidol (Unverified Allergy, Unknown, 04/29/16) morphine (Unverified Allergy, Unknown, 04/29/16) promethazine (Unverified Allergy, Unknown, 04/29/16) risperidone (Unverified Allergy, Unknown, 04/29/16) Home Meds Active Scripts Furosemide (Lasix 40Mg Tab) 40 Mg Tablet, 2 TAB PO DAILY for 10 Days, #30 TAB 0 Refills Prov:SUSAN DAILY MD 07/13/24 Loratadine (Claritin) 10 Mg Capsule, 1 CAP PO DAILY for allergy symptoms for 30 Days, #30 CAP 0 Refills Prov:SUSAN DAILY MD 07/13/24 Fluticasone Propionate (Flonase Allergy Relief) 50 Mcg/Actuation [place].susp, 2 SPRAY NS DAILY for 30 Days, #1 CANISTER 0 Refills Prov:SUSAN DAILY MD 07/13/24 Cephalexin (Cephalexin) 500 Mg Tablet, 1 TAB PO TID for 10 Days, #30 TAB 0 Refills Prov:SUSAN DAILY MD 12/5/24 Reported Medications Carboxymethyl/Glycerin/Poly80 (Refresh Optive Advanced Drops) 10 Ml Drops, 1 DROP OS DAILY, DROP 04/29/16 Cyclopentolate HCl (Cyclogyl 1% Ophth Soln) 20 Drop/Ml Opsol, 1 DROP OS DAILY, DROP 04/29/16 Cholecalciferol (Vitamin D3) (Vitamin D) 2,000 Unit Tablet, 2000 UNIT PO DAILY, TAB 04/29/16 [multivitamin] No Conflict Check, 1 TAB PO DAILY 04/29/16 Esomeprazole Magnesium (Nexium) 40 Mg Capsule.dr, 40 MG PO DAILY, CAP 04/29/16 Carboxymethylcell/Hypromellose (Genteal Gel Drops) 25 Ml Drp.lq.gel, 10 G OP AD 04/29/16 Fenofibrate (Fenofibrate) 160 Mg Tablet, 160 MG PO HS, TAB 04/29/16 Polyethylene Glycol 3350 (Polyethylene Glycol 3350) 17 Gm Powd.pack, 17 GM PO DAILY, APPL 04/29/16 [prednisolone ] No Conflict Check, 1 % OS QID 1 drop os 04/29/16 Nitroglycerin (Nitrostat) 0.4 Mg Tab.subl, 0.4 MG SL AD, TAB.SL 04/29/16 [isosorbide] No Conflict Check, 30 MG PO HS 04/29/16 Valsartan (Valsartan) 80 Mg Tablet, 0.5 TAB PO DAILY, TAB 04/29/16 [place]-3 Fatty Acids/Fish Oil (Fish Oil 1,000 mg Capsule) 1 Each Capsule, 2 TAB PO BID, CAP 04/29/16 Hydrochlorothiazide (Hydrochlorothiazide) 50 Mg Tablet, 50 MG PO DAILY, TAB 04/29/16 Divalproex Sodium (Divalproex Sodium ER) 500 Mg Tab.er.24h, 3 TAB PO HS, TAB 04/29/16 Aripiprazole (Aripiprazole) 20 Mg Tablet, 20 MG PO HS, TAB 04/29/16 Buspirone HCl (Buspirone HCl) 15 Mg Tablet, 15 MG PO BID, TAB 04/29/16 Docusate Sodium (Colace) 100 Mg Capsule, 100 MG PO TID, CAP 04/29/16 Calcitriol (Calcitriol) 0.5 Mcg Capsule, 0.5 MCG PO BID, CAP 04/29/16 Ezetimibe (Zetia) 10 Mg Tablet, 10 MG PO DAILY, TAB 04/29/16 Levothyroxine Sodium (Synthroid) 175 Mcg Tablet, 175 MCG PO DAILY, TAB sat and sun. 04/29/16 Levothyroxine Sodium (Synthroid) 200 Mcg Tablet, 200 MCG PO DAILY, TAB mon-thu04/29/16 Verapamil HCl (Verapamil ER) 240 Mg Tablet.er, 240 MG PO DAILY, TAB 04/29/16 Calcium Carbonate (Calcium) 600 Mg Tablet, 600 MG PO TID, TAB 04/29/16 Past Medical History Past Medical History: Anxiety, Bipolar, Fibromyalgia Medical History Other: BLIND LEFT EYE Past Surgical History: Unknown Surgical History Other: THYROIDECTOMY, CARDIC STENTS, L RETINAL DETACHEMENT Family History Family History: Negative Social History Social History: Negative Female( History) History: Not Applicable ROS Dictation CONSTITUTIONAL: Negative except for HPI HEAD/FACE: Negative except for HPI EENT: Negative except for HPI RESPIRATORY: Negative except for HPI GASTROINTESTINAL/ABDOMINAL: Negative except for HPI GENITOURINARY: Negative except for HPI MUSCULOSKELETAL: Negative except for HPI INTEGUMENTARY: Negative except for HPI NEUROLOGICAL/PSYCH: Negative except for HPI HEMATOLOGIC/LYMPHATIC: Negative except for HPI All Systems Negative, Except as noted above. 13 point review of systems assessed and all negative except for above. Physical Exam Physical Exam Dictation Vital Signs reviewed General Appearance: Alert, oriented x 3, no acute distress, well developed, nourished. Head and Face: non-traumatic. Eyes: PERRL, pink conjunctivas, eyelid no trauma, anterior chamber with arcus senilis. Ears: Pinnas intact and no signs of trauma or erythema ear canals clear and no discharge TM no erythema Nose: No discharge, no bleeding. Oropharynx: Mouth normal, tongue pink, pharynx clear,no erythema, tonsils no exudates, no abscesses noted, mucous membrane moist Neck: Supple, non-tender, no thyromegaly, no masses, no JVD, no bruits Breast:Deferred Chest:No tenderness, no crepitus, no paradoxical movement, no retractions Lungs:Clear, well-ventilated, symmetric, no rales, no wheezing, no rhonchi, no stridor, good breath sounds bilaterally Heart: Regular rate, regular rhythm, no murmur, no gallops Vascular: no peripheral edema, Abdomen: Soft, positive bowel sounds, nondistended, no guarding, nontender, no rebound, no masses no hepatomegaly, no splenomegaly, no Ferrell's sign, no hernias. Rectal: Deferred Genital: Deferred Neurological: Normal speech, motor function intact, sensory function intact Musculoskeletal: Neck nontender, full range of motion, back nontender, full range of motion, Extremities: nontender, full range of motion Skin: Color pink, dry, no turgor, no rash, no lacerations, no abrasions, no contusions. Lymphatic: Deferred Results Laboratory and Microbiology Labs Reviewed?: Yes EKG/XRAY/US/CT/MRI CT Scan Comment CT abdomen and pelvis-no solid organ laceration or bowel wall thickening, no free air or free fluid, no evidence of fracture, MDM MDM: Differential diagnosis: Fall, abdominal discomfort, chronic abdominal pain Patient is a 58-year-old female coming in to be evaluated for abdominal pain. CT did not disclose acute findings. Patient has had stated earlier that she had fallen and thinks that is where the pain came from. CT did not disclose acute findings patient will be discharged in stable condition. ED Course Orders Procedure Category Date Status Time Ct Abdomen/Pelvis W/O CT 08/25/24 Taken Contrast 02:55 Vital Signs Date Time Temp Pulse Resp B/P (MAP) Pulse Ox O2 Delivery O2 Flow Rate FiO2 08/25/24 02:47 97.5 86 20 138/74 98 Room Air DX & DISP Disposition: Discharge Departure Impression: Primary Impression: Fall Additional Impression: Chronic abdominal pain Condition: Stable Additional Instructions: FOLLOW-UP WITH PRIMARY CARE PROVIDER IN 1 TO 2 DAYS. TAKE MEDICATIONS DIRECTED HERE IN THE EMERGENCY ROOM. OKAY TO CONTINUE HOME MEDICATIONS UNLESS OTHERWISE DISCUSSED DURING YOUR VISIT IN THE EMERGENCY ROOM TODAY. RETURN TO YOUR NEAREST EMERGENCY ROOM IF SYMPTOMS WORSEN OR IF THERE IS NO IMPROVEMENT. CALL 911 IF YOU NEED IMMEDIATE ASSISTANCE. TAKE TYLENOL [id number] NEEDED AND IF NO CONTRAINDICATIONS ARE PRESENT. INCREASE ORAL HYDRATION. A WOUND CULTURE OR URINE CULTURE WAS ORDERED HERE IN THE EMERGENCY ROOM DEPARTMENT PLEASE FOLLOW-UP WITH PRIMARY CARE PROVIDER AND ADVISE THEM TO GET REPEAT PORTS FROM OUR FACILITY. IF YOU HAD ANY LOYD WRAP/SPLINTS THAT WERE APPLIED HERE, PLEASE DO NOT REMOVE THEM UNTIL YOU SEE YOUR PRIMARY CARE OR SPECIALTY. Referrals: Referrals: MATTHEW LORD MD (PCP) Time of Disposition: 05:48 HERB PARKER Aug 25, 2024 03:57 LINDSAY SILVER MD Aug 25, 2024 05:48
[2024-08-25 05:58] VITALS: BP 129/81; PULSE 73; RESP 17; TEMP 97.5; O2SAT 99
--- NOTE | 2024-08-25 08:32 | HMCIMG ---
CT ABDOMEN/PELVIS W/O CONTRAST REASON: fall/left rib/left pelvis pain COMPARISON: 10/10/2007 FINDINGS: Lung bases are clear. There are no focal liver lesions. There are normal-appearing kidneys.. Spleen and pancreas appear unremarkable. The gallbladder appears normal as well. Bowel loops appear unremarkable. This includes normal appearance of the appendix There is no evidence of free fluid or intraperitoneal air. There are no focal fluid collections. Aorta and retroperitoneum appear normal as do pelvic soft tissue structures. The anterior abdominal wall is intact. Osseous structures appear unremarkable. Particular attention to the left lower rib cage and the pelvis shows no evidence of fracture. IMPRESSION: 1. Negative noncontrast CT abdomen and pelvis. CT was performed with one or more following dose reduction techniques: automated exposure control, adjustment of the mA and kv according to patient's size, or use of a iterative reconstruction technique.
== END 2024-08-25 06:10 | disposition home or self-care (01) ==
LOC: EDH 02:44
DX: G89.29 Other chronic pain (principal); R10.9 Unspecified abdominal pain; F41.9 Anxiety disorder, unspecified; F31.9 Bipolar disorder, unspecified; M79.7 Fibromyalgia; Z79.890 Hormone replacement therapy; Z79.899 Other long term (current) drug therapy; Z88.2 Allergy status to sulfonamides; Z88.5 Allergy status to narcotic agent; Z88.6 Allergy status to analgesic agent; Z88.8 Allergy status to other drugs, medicaments and biological substances; Z90.89 Acquired absence of other organs
CPT/HCPCS: 74176; 99284

== ENCOUNTER 2024-10-02 08:08 | Emergency (ER) | payer MEDICARE ==
[~2024-10-02] VITALS: Ht 152.4 cm; Wt 104.3 kg
[2024-10-02 08:34] LABS: APPEARANCE,URINE CLEAR (CLEAR); BILIRUBIN,URINE NEGATIVE (NEGATIVE); COLOR,URINE LIGHT-YELLOW (YELLOW); GLUCOSE, URINE (UA) NEGATIVE (NEGATIVE); KETONES,URINE NEGATIVE (NEGATIVE); LEUKOCYTE ESTERASE ,URINE 500 Leu/uL (NEGATIVE); NITRATE,URINE NEGATIVE (NEGATIVE); OCCULT BLOOD,URINE NEGATIVE (NEGATIVE); PROTEIN,URINE 10 mg/dL (NEGATIVE); UROBILINOGEN,URINE 0.2 mg/dL (0.2-1.0)
[2024-10-02 08:43] LABS: ADD UA MICROSCOPIC YES
[2024-10-02 08:48] LABS: BACTERIA,URINE RARE /HPF (None Seen); SQUAMOUS EPITHELIAL CELL,UR FEW /HPF (0-2)
[2024-10-02 09:31] LABS: BASOPHILS # (AUTO) 0.04 K/uL (0.00-0.20); BASOPHILS % (AUTO) 0.6 % (0.0-5.0); EOSINOPHILS # (AUTO) 0.18 K/uL (0.00-0.70); EOSINOPHILS % (AUTO) 2.9 % (0.0-8.0); IMMATURE GRANULOCYTE ABSOLUTE 0.01 K/uL (0-1); LYMPHOCYTES # (AUTO) 1.6 K/uL (1.0-4.8); LYMPHOCYTES % (AUTO) 24.8 % (21.0-51.0); MEAN CORPUSCULAR HEMOGLOBIN 27.7 pg (27.0-33.0); MEAN CORPUSCULAR HGB CONC 31.4 g/dL (32.0-36.0); MEAN CORPUSCULAR VOLUME 88.2 fL (79-99); MONOCYTES # (AUTO) 0.6 K/uL (0.1-1.0); MONOCYTES % (AUTO) 9.6 % (3.0-13.0); NEUTROPHILS # (AUTO) 3.9 K/uL (1.8-7.7); NEUTROPHILS % (AUTO) 61.9 % (40.0-77.0); PLATELET COUNT (AUTO) 303 K/uL (130-400); RED BLOOD CELL COUNT(AUTO) 3.97 MIL/uL (4.00-5.50); RED CELL DISTRIBUTION WIDTH 16.9 % (11.0-15.5); WHITE BLOOD COUNT (AUTO) 6.2 K/uL (4.8-10.8)
[2024-10-02] MEDS: ondanSETRON 4MG INJ IVP ONE (09:35)
[2024-10-02] MEDS: 0.9%NACL 1000ML 1,000 ML IV ONE (09:35)
[2024-10-02 09:44] LABS: CREATININE 1.4 mg/dL (0.5-1.0); POTASSIUM 3.7 mmol/L (3.5-5.1)
--- NOTE | 2024-10-02 09:44 | ERN ---
ED Note History of Present Illness Stated Complaint: ABD PAIN SINCE LAST NIGHT Chief Complaint: Abdominal Pain Time Seen by MD: 08:22 Dictation: 58-year-old female presents to the ED for evaluation of abdominal pain onset this morning. Patient reports nausea, three emesis episodes, and diarrhea but denies any diarrhea or any other associated symptoms at this time. As per patient's symptoms began after eating eggs. Allergies: Coded Allergies: Sulfa (Sulfonamide Antibiotics) (Unverified Allergy, Unknown, 04/29/16) aspirin (Unverified Allergy, Unknown, 04/29/16) codeine (Unverified Allergy, Unknown, 04/29/16) diphenhydramine (Unverified Allergy, Unknown, 04/29/16) haloperidol (Unverified Allergy, Unknown, 04/29/16) morphine (Unverified Allergy, Unknown, 04/29/16) promethazine (Unverified Allergy, Unknown, 04/29/16) risperidone (Unverified Allergy, Unknown, 04/29/16) Home Meds Active Scripts Dicyclomine HCl (Bentyl) 20 Mg Tab, 1 TAB PO BID for irritable bowel symptoms for 10 Days, #20 TAB 0 Refills Prov:SINCERE SIN MD 10/02/24 Ondansetron (Ondansetron Odt) 4 Mg Tab.rapdis, 1 TAB PO BID PRN for nausea/vomiting for 5 Days, #10 TAB 0 Refills Prov:SINCERE SIN MD 10/02/24 Furosemide (Lasix 40Mg Tab) 40 Mg Tablet, 2 TAB PO DAILY for 10 Days, #30 TAB 0 Refills Prov:SUSAN DAILY MD 07/13/24 Loratadine (Claritin) 10 Mg Capsule, 1 CAP PO DAILY for allergy symptoms for 30 Days, #30 CAP 0 Refills Prov:SUSAN DAILY MD 07/13/24 Fluticasone Propionate (Flonase Allergy Relief) 50 Mcg/Actuation [place].susp, 2 SPRAY NS DAILY for 30 Days, #1 CANISTER 0 Refills Prov:SUSAN DAILY MD 07/13/24 Cephalexin (Cephalexin) 500 Mg Tablet, 1 TAB PO TID for 10 Days, #30 TAB 0 Refills Prov:SUSAN DAILY MD 06/30/24 Reported Medications Carboxymethyl/Glycerin/Poly80 (Refresh Optive Advanced Drops) 10 Ml Drops, 1 DROP OS DAILY, DROP 04/29/16 Cyclopentolate HCl (Cyclogyl 1% Ophth Soln) 20 Drop/Ml Opsol, 1 DROP OS DAILY, DROP 04/29/16 Cholecalciferol (Vitamin D3) (Vitamin D) 2,000 Unit Tablet, 2000 UNIT PO DAILY, TAB 04/29/16 [multivitamin] No Conflict Check, 1 TAB PO DAILY 04/29/16 Esomeprazole Magnesium (Nexium) 40 Mg Capsule.dr, 40 MG PO DAILY, CAP 04/29/16 Carboxymethylcell/Hypromellose (Genteal Gel Drops) 25 Ml Drp.lq.gel, 10 G OP AD 04/29/16 Fenofibrate (Fenofibrate) 160 Mg Tablet, 160 MG PO HS, TAB 04/29/16 Polyethylene Glycol 3350 (Polyethylene Glycol 3350) 17 Gm Powd.pack, 17 GM PO DAILY, APPL 04/29/16 [prednisolone ] No Conflict Check, 1 % OS QID 1 drop os 04/29/16 Nitroglycerin (Nitrostat) 0.4 Mg Tab.subl, 0.4 MG SL AD, TAB.SL 04/29/16 [isosorbide] No Conflict Check, 30 MG PO HS 04/29/16 Valsartan (Valsartan) 80 Mg Tablet, 0.5 TAB PO DAILY, TAB 04/29/16 [place]-3 Fatty Acids/Fish Oil (Fish Oil 1,000 mg Capsule) 1 Each Capsule, 2 TAB PO BID, CAP 04/29/16 Hydrochlorothiazide (Hydrochlorothiazide) 50 Mg Tablet, 50 MG PO DAILY, TAB 04/29/16 Divalproex Sodium (Divalproex Sodium ER) 500 Mg Tab.er.24h, 3 TAB PO HS, TAB 04/29/16 Aripiprazole (Aripiprazole) 20 Mg Tablet, 20 MG PO HS, TAB 04/29/16 Buspirone HCl (Buspirone HCl) 15 Mg Tablet, 15 MG PO BID, TAB 04/29/16 Docusate Sodium (Colace) 100 Mg Capsule, 100 MG PO TID, CAP 04/29/16 Calcitriol (Calcitriol) 0.5 Mcg Capsule, 0.5 MCG PO BID, CAP 04/29/16 Ezetimibe (Zetia) 10 Mg Tablet, 10 MG PO DAILY, TAB 04/29/16 Levothyroxine Sodium (Synthroid) 175 Mcg Tablet, 175 MCG PO DAILY, TAB sat and sun. 04/29/16 Levothyroxine Sodium (Synthroid) 200 Mcg Tablet, 200 MCG PO DAILY, TAB mon-fri 04/29/16 Verapamil HCl (Verapamil ER) 240 Mg Tablet.er, 240 MG PO DAILY, TAB 04/29/16 Calcium Carbonate (Calcium) 600 Mg Tablet, 600 MG PO TID, TAB 04/29/16 Past Medical History Past Medical History: Anxiety, Bipolar, Depression, Diabetes-Type II, Hyper tension, Schizophrenia Additional Past Medical Hx: BLIND LEFT EYE Surgical History: Unknown Surgical History Other: THYROIDECTOMY, CARDIC STENTS, L RETINAL DETACHEMENT Family History: Negative Social History: Negative History: Not Applicable Review of System Dictation Constitutional: Negative for fever,chills, and weight loss Eyes: Negative for injury, pain,redness, and discharge ENT: Negative for injury,pain or swelling Cardiovascular: Negative for chest pain, palpitations, and edema Respiratory: Negative for shortness of breath, cough, and wheezing, Abdomen/GI: Positive for abdominal pain, nausea, vomiting, diarrhea Back: Negative for injury and pain : Negative for injury, bleeding and discharge MS/Extremity: Negative for injury and deformity Skin: Negative for rash, and discoloration Neuro: Negative for headache, weakness, numbness, tingling, and seizure Psych: Negative for suicide ideation, homicidal ideation, and hallucinations Initial Vital Sign VS Vital Signs Date Time Temp Pulse Resp B/P (MAP) Pulse Ox O2 Delivery O2 Flow Rate FiO2 10/02/24 08:10 78 17 145/79 97 Room Air 0 10/02/24 10:08 21 Physical Exam Dictation General: awake, alert, NAD Head/Face: Normocephalic, atraumatic Eyes: PERRL, EOMI, vision at baseline ENT: oral cavity clear, TMs clear, no signs of infection Neck: Trachea midline, supple, no nuchal rigidity Cardiovascular: RRR, normal S1/S2, No MRGs, no JVD Respiratory: CTAB, no respiratory distress, No rales or wheezes Abdomen: Soft, non-tender, non-distended, normal bowel sounds, no guarding or rebound. Skin: Warm, dry, normal turgor, no rash MS/Extremity: Pulses equal, no cyanosis, neurovascular intact, FROM Neuro: COAx4, GCS 15, strength 5/5, CN 2-12 intact, normal cerebellar exam, normal gait, Psych: Normal behavior, mood, and affect normal Results (Laboratory/Radiology) Laboratory/Radiology Laboratory Tests Test 10/02/24 08:17 10/02/24 09:14 Urine Color LIGHT-YELLOW (YELLOW) Urine Appearance CLEAR (CLEAR) Urine pH 7.0 (5.0-8.0) Urine Specific [place] 1.018 (1.001-1.031) Urine Protein 10 mg/dL (NEGATIVE) H Urine Glucose (UA) NEGATIVE mg/dL (NEGATIVE) Urine Ketones NEGATIVE mg/dL (NEGATIVE) Urine Occult Blood NEGATIVE (NEGATIVE) Urine Nitrate NEGATIVE (NEGATIVE) Urine Bilirubin NEGATIVE mg/dL (NEGATIVE) Urine Urobilinogen 0.2 mg/dL (0.2-1.0) Urine Leukocyte Esterase 500 [place]/uL (NEGATIVE) H Urine RBC 2-5 /HPF (0-1) H Urine WBC 2-5 /HPF (0-1) H Urine Squamous Epithelial Cells FEW /HPF (0-2) Urine Bacteria RARE /HPF (None Seen) White Blood Count 6.2 K/uL (4.8-10.8) Red Blood Count 3.97 MIL/uL (4.00-5.50) L Hemoglobin 11.0 g/dL (12.0-16.0) L Hematocrit 35.0 % (36-48) L Mean Corpuscular Volume 88.2 fL (79-99) Mean Corpuscular Hemoglobin 27.7 pg (27.0-33.0) Mean Corpuscular Hemoglobin Concent 31.4 g/dL (32.0-36.0) L Red Cell Distribution Width 16.9 % (11.0-15.5) H Platelet Count 303 K/uL (130-400) Mean Platelet Volume 9.1 fL (7.5-10.5) Immature Granulocyte % (Auto) 0.2 % (0-1) Neutrophils (%) (Auto) 61.9 % (40.0-77.0) Lymphocytes (%) (Auto) 24.8 % (21.0-51.0) Monocytes (%) (Auto) 9.6 % (3.0-13.0) Eosinophils (%) (Auto) 2.9 % (0.0-8.0) Basophils (%) (Auto) 0.6 % (0.0-5.0) Neutrophils # (Auto) 3.9 K/uL (1.8-7.7) Lymphocytes # (Auto) 1.6 K/uL (1.0-4.8) Monocytes # (Auto) 0.6 K/uL (0.1-1.0) Eosinophils # (Auto) 0.18 K/uL (0.00-0.70) Basophils # (Auto) 0.04 K/uL (0.00-0.20) Absolute Immature Granulocyte (auto 0.01 K/uL (0-1) Nucleated Red Blood Cells 0.0 % (0.0-0.19) Sodium Level 139 mmol/L (136-145) Potassium Level 3.7 mmol/L (3.5-5.1) Chloride Level 98 mmol/L (101-111) L Carbon Dioxide Level 39 mmol/L (21-32) H Blood Urea Nitrogen 21 mg/dL (7-18) H Creatinine 1.4 mg/dL (0.5-1.0) H Glomerular Filtration Rate Calc 44 mL/min (>90) Random Glucose 78 mg/dL (70-105) Total Calcium 9.0 mg/dL (8.5-10.1) Total Bilirubin 0.4 mg/dL (0.2-1.0) Direct Bilirubin 0.1 mg/dL (0.0-0.3) Aspartate Amino Transf (AST/SGOT) 17 U/L (10-37) Alanine Aminotransferase (ALT/SGPT) 16 U/L (12-78) Alkaline Phosphatase 48 U/L (50-136) L Troponin I High Sensitivity 7 ng/L (4-50) Total Protein 9.2 g/dL (6.0-8.3) H Albumin 4.1 g/dL (3.5-5.0) Lipase 43 U/L (16-77) Labs Reviewed?: Yes EKG Comment: EKG 10/02/2024 time 9:25 a.m. ventricular rate 77, ND 139, QRS D 103, QT 387. Sinus rhythm, low voltage precordial leads. No STEMI ED Course ED Course Orders Procedure Category Date Status Time Urinalysis Profile LAB 10/02/24 Complete 08:19 Basic Metabolic Panel LAB 10/02/24 Complete 08:19 Cbc With Differential LAB 10/02/24 Complete 08:19 Lipase LAB 10/02/24 Complete 08:19 12 Lead Ekg Tracing- EKG 10/02/24 Logged Technical 08:22 Troponin I High LAB 10/02/24 Complete Sensitivity 08:25 Ondansetron 4mg Inj PHA 10/02/24 Complete (Zofran 4mg Inj) 08:30 0.9%Nacl 1000ml (Ns PHA 10/02/24 Complete 1000ml) 08:30 Culture Urine OCTAVIO 10/02/24 Logged 08:43 Hepatic Function Panel LAB 10/02/24 Complete 08:19 Current Medications Medications (Trade) Dose Ordered Sig/Lynette Route PRN Reason Start Time Stop Time Status Last Admin Dose Admin Ondansetron HCl (zoFRAN 4MG INJ) 4 mg ONCE ONCE IVP 10/02/24 08:30 10/02/24 08:38 DC 10/02/24 09:35 Sodium Chloride 1,000 ml @ 0 mls/hr ONCE ONCE IV 10/02/24 08:30 10/02/24 08:38 DC 10/02/24 09:35 Vital Signs Date Time Temp Pulse Resp B/P (MAP) Pulse Ox O2 Delivery O2 Flow Rate FiO2 10/02/24 10:08 67 17 119/63 92 Room Air* 0 21 10/02/24 08:10 78 17 145/79 97 Room Air 0 HEART Score Response (Comments) Value History: Low suspicion (0) 0 EKG: Normal 0 Age: 45-65yrs (+1) 1 Risk Factors: 1-2 risk factors (+1) 1 Initial Troponin: Normal limit (0) 0 HEART Score Risk: Low Risk for MACE (1-3) Total 2 Medical Decision Making MDM MDM: Differential diagnosis: Abdominal pain, gastroenteritis Risk of complication and/or morbidity or mortality of patient management: None Medications-Per medication reconciliation Need for hospitalization: Patient does meet criteria for hospitalization. Need for emergency major/minor surgery: No There are no social concerns with this patient. Prescription drug management Prescriptions will include symptomatic care I independently interpreted the test that were performed, results were reviewed by me and considered findings on radiology if ordered. DX & DISP Disposition: Discharge Departure Impression: Primary Impression: Acute gastroenteritis Condition: Stable Scripts Dicyclomine HCl (Bentyl) 20 Mg Tab 1 TAB PO BID for irritable bowel symptoms for 10 Days, #20 TAB 0 Refills Prov: SINCERE SIN MD 10/02/24 Ondansetron (Ondansetron Odt) 4 Mg Tab.rapdis 1 TAB PO BID PRN for nausea/vomiting for 5 Days, #10 TAB 0 Refills Prov: SINCERE SIN MD 10/02/24 Referrals: MATTHEW LORD MD (PCP) SINCERE SIN MD Oct 02, 2024 09:44
[2024-10-02 09:48] LABS: ALBUMIN 4.1 g/dL (3.5-5.0); BILIRUBIN,DIRECT 0.1 mg/dL (0.0-0.3); BILIRUBIN,TOTAL 0.4 mg/dL (0.2-1.0); TOTAL PROTEIN, SERUM 9.2 g/dL (6.0-8.3)
[2024-10-02 10:08] VITALS: BP 119/63; PULSE 67; RESP 17; O2SAT 92
[2024-10-02] MEDS ORDERED: DICY20TA2 PO (10:20)
[2024-10-02] MEDS ORDERED: ONDA-243 PO (10:20)
--- NOTE | 2024-10-02 13:06 | EKG ---
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
== END 2024-10-02 11:00 | disposition home or self-care (01) ==
LOC: EDH 08:08
DX: K52.9 Noninfective gastroenteritis and colitis, unspecified (principal); F20.9 Schizophrenia, unspecified; E11.9 Type 2 diabetes mellitus without complications; F31.9 Bipolar disorder, unspecified; F41.9 Anxiety disorder, unspecified; I10 Essential (primary) hypertension; Z79.890 Hormone replacement therapy; Z79.899 Other long term (current) drug therapy; Z88.2 Allergy status to sulfonamides; Z88.5 Allergy status to narcotic agent; Z88.6 Allergy status to analgesic agent; Z88.8 Allergy status to other drugs, medicaments and biological substances; Z90.89 Acquired absence of other organs
CPT/HCPCS: 99284; 96374; 96361; 80076; 84484; 80048; 83690; 85025; 87086 ×2; 87186; 81001; 36415; 93005; J7030; J2405

== ENCOUNTER 2024-10-06 06:30 | Emergency (ER) | payer MEDICARE ==
[~2024-10-06] VITALS: Ht 162.6 cm; Wt 81.6 kg
[~2024-10-06 06:30] MED LIST changes: +DICY20TA2 PO; +ONDA-243 PO
[2024-10-06 06:44] VITALS: BP 132/77; PULSE 74; RESP 18; TEMP 98
--- NOTE | 2024-10-06 07:30 | NUR ---
pt eloped er department. did not sign ama form.
== END 2024-10-06 08:50 | disposition left against medical advice (07) ==
LOC: EDH 06:30
DX: K62.5 Hemorrhage of anus and rectum (principal); Z53.21 Procedure and treatment not carried out due to patient leaving prior to being seen by health care provider

== ENCOUNTER 2024-10-11 02:17 | Emergency (ER) | payer MEDICARE ==
[~2024-10-11] VITALS: Ht 162.6 cm; Wt 81.6 kg
[2024-10-11 02:19] VITALS: BP 172/92; PULSE 82; RESP 18; TEMP 98.1
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
--- NOTE | 2024-10-11 02:27 | NUR ---
PER PATIENT, WE ARE TAKING TOO LONG AND SHE IS LEAVING. PATIENT THEN GOT UP AND WALKED OUT
== END 2024-10-11 02:27 | disposition left against medical advice (07) ==
LOC: EDH 02:17
DX: F41.9 Anxiety disorder, unspecified (principal); Z53.21 Procedure and treatment not carried out due to patient leaving prior to being seen by health care provider

== ENCOUNTER 2024-10-24 04:54 | Emergency (ER) | payer MEDICARE ==
[~2024-10-24] VITALS: Ht 157.5 cm; Wt 101.2 kg
--- NOTE | 2024-10-24 05:05 | ERN ---
General Chief Complaint: Trauma Activation Stated Complaint: FALL IN SHOWER, HEAD TRAUMA, ON ELIQUIS Time Seen by MD: 04:56 Source: patient History of Present Illness Initial Comments 58-year-old female on blood thinners who was in her bathroom when she fell over onto her right side and also striking her head on the concrete floor. She is alert and oriented but is unable to lift her right arm at all. She does have some limited motion in the elbow and in the fingers but otherwise she is completely protecting her right arm and holding it braced against her body. She has a past history of a stroke. When I questioned her more about the events leading to her fall she said she felt like a stroke caused the fall, then she said it happened when she was having chest pain and reaching for her nitroglycerin. In addition, she states her vision is blurry in her right eye. She related to the charge nurse that she has fallen twice in the last day, being seen and discharged from [facility]. I called to [facility] emergency room and she was indeed seen there today twice once for a swollen ankle and plain films of that ankle are negative. She was also seen for arm pain and elbow pain and plain films of her right shoulder and elbow are negative for fracture or displacement. Timing/Duration: 1 hour Severity: moderate Allergies: Coded Allergies: Sulfa (Sulfonamide Antibiotics) (Unverified Allergy, Unknown, 04/29/16) aspirin (Unverified Allergy, Unknown, 04/29/16) codeine (Unverified Allergy, Unknown, 04/29/16) diphenhydramine (Unverified Allergy, Unknown, 04/29/16) haloperidol (Unverified Allergy, Unknown, 04/29/16) morphine (Unverified Allergy, Unknown, 04/29/16) promethazine (Unverified Allergy, Unknown, 04/29/16) risperidone (Unverified Allergy, Unknown, 04/29/16) Home Meds Active Scripts Dicyclomine HCl (Bentyl) 20 Mg Tab, 1 TAB PO BID for irritable bowel symptoms for 10 Days, #20 TAB 0 Refills Prov:SINCERE SIN MD 10/02/24 Ondansetron (Ondansetron Odt) 4 Mg Tab.rapdis, 1 TAB PO BID PRN for nausea/vomiting for 5 Days, #10 TAB 0 Refills Prov:SINCERE SIN MD 10/02/24 Furosemide (Lasix 40Mg Tab) 40 Mg Tablet, 2 TAB PO DAILY for 10 Days, #30 TAB 0 Refills Prov:SUSAN DAILY MD 07/13/24 Loratadine (Claritin) 10 Mg Capsule, 1 CAP PO DAILY for allergy symptoms for 30 Days, #30 CAP 0 Refills Prov:SUSAN DAILY MD 07/13/24 Fluticasone Propionate (Flonase Allergy Relief) 50 Mcg/Actuation [place].susp, 2 SPRAY NS DAILY for 30 Days, #1 CANISTER 0 Refills Prov:SUSAN DAILY MD 07/13/24 Cephalexin (Cephalexin) 500 Mg Tablet, 1 TAB PO TID for 10 Days, #30 TAB 0 Refills Prov:SUSAN DAILY MD 06/30/24 Reported Medications Carboxymethyl/Glycerin/Poly80 (Refresh Optive Advanced Drops) 10 Ml Drops, 1 DROP OS DAILY, DROP 04/29/16 Cyclopentolate HCl (Cyclogyl 1% Ophth Soln) 20 Drop/Ml Opsol, 1 DROP OS DAILY, DROP 04/29/16 Cholecalciferol (Vitamin D3) (Vitamin D) 2,000 Unit Tablet, 2000 UNIT PO DAILY, TAB 04/29/16 [multivitamin] No Conflict Check, 1 TAB PO DAILY 04/29/16 Esomeprazole Magnesium (Nexium) 40 Mg Capsule.dr, 40 MG PO DAILY, CAP 04/29/16 Carboxymethylcell/Hypromellose (Genteal Gel Drops) 25 Ml Drp.lq.gel, 10 G OP AD 04/29/16 Fenofibrate (Fenofibrate) 160 Mg Tablet, 160 MG PO HS, TAB 04/29/16 Polyethylene Glycol 3350 (Polyethylene Glycol 3350) 17 Gm Powd.pack, 17 GM PO DAILY, APPL 04/29/16 [prednisolone ] No Conflict Check, 1 % OS QID 1 drop os 04/29/16 Nitroglycerin (Nitrostat) 0.4 Mg Tab.subl, 0.4 MG SL AD, TAB.SL 04/29/16 [isosorbide] No Conflict Check, 30 MG PO HS 04/29/16 Valsartan (Valsartan) 80 Mg Tablet, 0.5 TAB PO DAILY, TAB 04/29/16 [place]-3 Fatty Acids/Fish Oil (Fish Oil 1,000 mg Capsule) 1 Each Capsule, 2 TAB PO BID, CAP 04/29/16 Hydrochlorothiazide (Hydrochlorothiazide) 50 Mg Tablet, 50 MG PO DAILY, TAB 04/29/16 Divalproex Sodium (Divalproex Sodium ER) 500 Mg Tab.er.24h, 3 TAB PO HS, TAB 04/29/16 Aripiprazole (Aripiprazole) 20 Mg Tablet, 20 MG PO HS, TAB 04/29/16 Buspirone HCl (Buspirone HCl) 15 Mg Tablet, 15 MG PO BID, TAB 04/29/16 Docusate Sodium (Colace) 100 Mg Capsule, 100 MG PO TID, CAP 04/29/16 Calcitriol (Calcitriol) 0.5 Mcg Capsule, 0.5 MCG PO BID, CAP 04/29/16 Ezetimibe (Zetia) 10 Mg Tablet, 10 MG PO DAILY, TAB 04/29/16 Levothyroxine Sodium (Synthroid) 175 Mcg Tablet, 175 MCG PO DAILY, TAB sat and sun. 04/29/16 Levothyroxine Sodium (Synthroid) 200 Mcg Tablet, 200 MCG PO DAILY, TAB mon-thu04/29/16 Verapamil HCl (Verapamil ER) 240 Mg Tablet.er, 240 MG PO DAILY, TAB 04/29/16 Calcium Carbonate (Calcium) 600 Mg Tablet, 600 MG PO TID, TAB 04/29/16 Past Medical History Past Medical History: Anxiety, Bipolar, Depression, Diabetes-Type II, Hypertension, Schizophrenia Medical History Other: BLIND LEFT EYE Past Surgical History: Unknown Surgical History Other: THYROIDECTOMY, CARDIC STENTS, L RETINAL DETACHEMENT Family History Family History: Negative Social History Social History: Negative Female( History) History: Not Applicable EENTM: (+) blurred vision Physical Exam General Appearance: (+) mild distress Orientation: (+) alert Eye: right eye normal inspection, right eye PERRL, right eye EOMI Ear, Nose, Throat: (+) hearing grossly normal Neck: (+) normal inspection Respiratory: (+) chest non-tender, (+) lungs clear Heart: (+) regular Vascular: (+) no edema Gastrointestinal: (+) soft, (+) non-tender Results Laboratory and Microbiology Lab and Micro Result Laboratory Tests Test 10/24/24 05:35 Troponin I High Sensitivity 5 ng/L (4-50) Serum Alcohol < 3 mg/dL (0-10) MDM I canceled the plain films of her right shoulder right elbow and wrist as they have already been examined at [facility] today and plain films are negative I did perform a head CT scan with no contrast. With the patient's films were negative. I will provide her with a sling for her right arm for comfort a little Tylenol for pain and then discharge her home. ED Course Orders Procedure Category Date Status Time Ct Head/Brain W/O CT 10/24/24 Taken Contrast 05:01 Shoulder Comp 2+Vws Rt RAD 10/24/24 Taken 05:01 Elbow Comp 3+Vws Rt RAD 10/24/24 Taken 05:01 Wrist 2vws Rt RAD 10/24/24 Taken 05:01 12 Lead Ekg Tracing- EKG 10/24/24 Complete Technical 05:13 Troponin I High LAB 10/24/24 Complete Sensitivity 05:13 Alcohol, Blood LAB 10/24/24 Complete 05:13 Sling GUNJAN 10/24/24 In Process 06:14 Acetaminophen 500mg PHA 10/24/24 Transmitted Tab (Tylenol 500mg T 06:30 Vital Signs Date Time Temp Pulse Resp B/P (MAP) Pulse Ox O2 Delivery O2 Flow Rate FiO2 10/24/24 05:58 98.8 74 16 123/60 95 Room Air* 0 21 10/24/24 04:55 99.0 83 18 124/69 93 Room Air* 0 21 10/24/24 04:55 99.0 85 17 124/89 91 Room Air 0 DX & DISP Disposition: Discharge Departure Impression: Primary Impression: Right shoulder pain Condition: Stable Referrals: MATTHEW LORD MD (PCP) POPEYE BHATTI MD Oct 24, 2024 05:05
--- NOTE | 2024-10-24 05:09 | NUR ---
patient transported to ct
--- NOTE | 2024-10-24 05:37 | EKG ---
[facility] Test Date: 2024-10-24 Test Time: 05:35:08 Pat Name: LALO MCDONALD Department: ED Room: Gender: Female Neurosurgeon: [id number] : 1965 Requested By: POPEYE BHATTI Order Number: [id number] Reading MD: Measurements Intervals Quail Rate: 74 P: 56 MT: 145 QRS: 21 QRSD: 102 T: 29 QT: 394 QTc: 438 Interpretive Statements Sinus rhythm Low voltage, precordial leads Please click the below link to view image of tracing.
[2024-10-24] MEDS: acetaMINOPHEN 500 MG TABLET PO ONE (06:30)
[2024-10-24 06:58] VITALS: BP 135/78; PULSE 75; RESP 19; TEMP 98.2; O2SAT 97
--- NOTE | 2024-10-24 09:03 | HMCIMG ---
WRIST 2VWS RT HISTORY: Status post fall COMPARISON: None TECHNIQUE: 2 images of right wrist were obtained. FINDINGS: There is no acute displaced fracture or dislocation. IMPRESSION: 1. Findings as described above.
--- NOTE | 2024-10-24 09:21 | HMCIMG ---
CT HEAD WITHOUT CONTRAST INDICATION: Fall, on blood thinners TECHNIQUE: Noncontrast axial helical CT images from the vertex through the skull base using 5 mm slice thickness without contrast material. CT was performed with one or more of the following dose reduction techniques: Automated exposure control, adjustment of the mA and/or kV according to patient size, or use of iterative reconstruction technique. COMPARISON: 07/25/2017 FINDINGS: The cerebral and cerebellar hemispheres are age-appropriate in appearance. No evidence for abnormal extra-axial fluid collections or masses. The ventricles and sulci are normal in size and configuration. No evidence for intracranial parenchymal, epidural, or subdural hemorrhage, mass effect or midline shift. The lazo-white matter differentiation is well preserved. No secondary evidence to suggest acute ischemia. The brainstem and cerebellum appear normal. Right orbit appears normal. Left phthisis bulbi. The visible paranasal sinuses and mastoid air cells are clear. The calvarium appears normal. IMPRESSION: No acute intracranial process identified.
--- NOTE | 2024-10-24 09:21 | HMCIMG ---
RIGHT ELBOW RADIOGRAPHS - 3 VIEWS INDICATION: Pain COMPARISON: None FINDINGS: AP, lateral, and oblique views. No acute fracture or subluxation identified. No significant joint effusion is present. No radiopaque foreign body noted. IMPRESSION: No evidence for fracture or dislocation.
--- NOTE | 2024-10-24 09:21 | HMCIMG ---
RIGHT SHOULDER RADIOGRAPHS - 2-3 VIEWS INDICATION: Pain COMPARISON: None FINDINGS: No fracture or dislocation identified. Acromioclavicular and glenohumeral alignments are well maintained. Visible portions of the right clavicle are intact. Moderate lateral arch outlet narrowing could represent at least mild external impingement. IMPRESSION: No evidence for fracture or dislocation.
== END 2024-10-24 06:58 | disposition home or self-care (01) ==
LOC: EDH 04:54
DX: M25.511 Pain in right shoulder (principal); E11.9 Type 2 diabetes mellitus without complications; F41.9 Anxiety disorder, unspecified; F20.9 Schizophrenia, unspecified; I10 Essential (primary) hypertension; Z79.01 Long term (current) use of anticoagulants; Z79.890 Hormone replacement therapy; Z79.899 Other long term (current) drug therapy; Z86.73 Personal history of transient ischemic attack (TIA), and cerebral infarction without residual deficits; Z88.2 Allergy status to sulfonamides; Z88.5 Allergy status to narcotic agent; Z88.6 Allergy status to analgesic agent; Z88.8 Allergy status to other drugs, medicaments and biological substances; Z90.89 Acquired absence of other organs; W18.39XA Other fall on same level, initial encounter; Y93.E1 Activity, personal bathing and showering; Y92.89 Other specified places as the place of occurrence of the external cause; Y99.8 Other external cause status
CPT/HCPCS: 36415; 70450; 73030; 73080; 73100; 84484; 93005; 99285

== ENCOUNTER 2025-03-07 02:21 | Emergency (ER) | payer MEDICARE ==
[~2025-03-07] VITALS: Ht 160 cm; Wt 90.7 kg
--- NOTE | 2025-03-07 03:56 | ERN ---
General Chief Complaint: Vaginal Problems/Bleeding Stated Complaint: VAGINAL PAIN AND DISCHARGE Time Seen by MD: 03:02 Source: patient History of Present Illness Initial Comments Patient comes in complaining of brown foul-smelling discharge from her vagina as well as concerns for a yeast infection. She also has vaginal pain. Allergies: Coded Allergies: Sulfa (Sulfonamide Antibiotics) (Unverified Allergy, Unknown, 04/29/16) aspirin (Unverified Allergy, Unknown, 04/29/16) codeine (Unverified Allergy, Unknown, 04/29/16) diphenhydramine (Unverified Allergy, Unknown, 04/29/16) haloperidol (Unverified Allergy, Unknown, 04/29/16) morphine (Unverified Allergy, Unknown, 04/29/16) promethazine (Unverified Allergy, Unknown, 04/29/16) risperidone (Unverified Allergy, Unknown, 04/29/16) Home Meds Active Scripts Dicyclomine HCl (Bentyl) 20 Mg Tab, 1 TAB PO BID for irritable bowel symptoms for 10 Days, #20 TAB 0 Refills Prov:SINCERE SIN MD 10/02/24 Ondansetron (Ondansetron Odt) 4 Mg Tab.rapdis, 1 TAB PO BID PRN for nausea/vomit ing for 5 Days, #10 TAB 0 Refills Prov:SINCERE SIN MD 10/02/24 Furosemide (Lasix 40Mg Tab) 40 Mg Tablet, 2 TAB PO DAILY for 10 Days, #30 TAB 0 Refills Prov:SUSAN DAILY MD 07/13/24 Loratadine (Claritin) 10 Mg Capsule, 1 CAP PO DAILY for allergy symptoms for 30 Days, #30 CAP 0 Refills Prov:SUSAN DAILY MD 07/13/24 Fluticasone Propionate (Flonase Allergy Relief) 50 Mcg/Actuation [place].susp, 2 SPRAY NS DAILY for 30 Days, #1 CANISTER 0 Refills Prov:SUSAN DAILY MD 07/13/24 Cephalexin (Cephalexin) 500 Mg Tablet, 1 TAB PO TID for 10 Days, #30 TAB 0 Refills Prov:SUSAN DAILY MD 06/30/24 Reported Medications Carboxymethyl/Glycerin/Poly80 (Refresh Optive Advanced Drops) 10 Ml Drops, 1 DROP OS DAILY, DROP 04/29/16 Cyclopentolate HCl (Cyclogyl 1% Ophth Soln) 20 Drop/Ml Opsol, 1 DROP OS DAILY, DROP 04/29/16 Cholecalciferol (Vitamin D3) (Vitamin D) 2,000 Unit Tablet, 2000 UNIT PO DAILY, TAB 04/29/16 [multivitamin] No Conflict Check, 1 TAB PO DAILY 04/29/16 Esomeprazole Magnesium (Nexium) 40 Mg Capsule.dr, 40 MG PO DAILY, CAP 04/29/16 Carboxymethylcell/Hypromellose (Genteal Gel Drops) 25 Ml Drp.lq.gel, 10 G OP AD 04/29/16 Fenofibrate (Fenofibrate) 160 Mg Tablet, 160 MG PO HS, TAB 04/29/16 Polyethylene Glycol 3350 (Polyethylene Glycol 3350) 17 Gm Powd.pack, 17 GM PO DAILY, APPL 04/29/16 [prednisolone ] No Conflict Check, 1 % OS QID 1 drop os 04/29/16 Nitroglycerin (Nitrostat) 0.4 Mg Tab.subl, 0.4 MG SL AD, TAB.SL 04/29/16 [isosorbide] No Conflict Check, 30 MG PO HS 04/29/16 Valsartan (Valsartan) 80 Mg Tablet, 0.5 TAB PO DAILY, TAB 04/29/16 [place]-3 Fatty Acids/Fish Oil (Fish Oil 1,000 mg Capsule) 1 Each Capsule, 2 TAB PO BID, CAP 04/29/16 Hydrochlorothiazide (Hydrochlorothiazide) 50 Mg Tablet, 50 MG PO DAILY, TAB 04/29/16 Divalproex Sodium (Divalproex Sodium ER) 500 Mg Tab.er.24h, 3 TAB PO HS, TAB 04/29/16 Aripiprazole (Aripiprazole) 20 Mg Tablet, 20 MG PO HS, TAB 04/29/16 Buspirone HCl (Buspirone HCl) 15 Mg Tablet, 15 MG PO BID, TAB 04/29/16 Docusate Sodium (Colace) 100 Mg Capsule, 100 MG PO TID, CAP 04/29/16 Calcitriol (Calcitriol) 0.5 Mcg Capsule, 0.5 MCG PO BID, CAP 04/29/16 Ezetimibe (Zetia) 10 Mg Tablet, 10 MG PO DAILY, TAB 04/29/16 Levothyroxine Sodium (Synthroid) 175 Mcg Tablet, 175 MCG PO DAILY, TAB sat and sun. 04/29/16 Levothyroxine Sodium (Synthroid) 200 Mcg Tablet, 200 MCG PO DAILY, TAB mon-thu04/29/16 Verapamil HCl (Verapamil ER) 240 Mg Tablet.er, 240 MG PO DAILY, TAB 04/29/16 Calcium Carbonate (Calcium) 600 Mg Tablet, 600 MG PO TID, TAB 04/29/16 Past Medical History Past Medical History: Anxiety, Bipolar, CVA, Depression, Diabetes-Type II, High Cholesterol, Heart Disease, Hypertension, Hypothyroid, Schizophrenia Medical History Other: BLIND LEFT EYE Past Surgical History: Unknown Surgical History Other: THYROIDECTOMY, CARDIC STENTS, L RETINAL DETACHEMENT Family History Family History: Negative Social History Social History: Negative Female( History) History: Not Applicable Constitutional: (-) chills, (-) diaphoresis, (-) fever, (-) malaise, (-) weakness, (-) other documentation EENTM: (-) eye pain, (-) blurred vision, (-) tearing, (-) double vision, (-) ear pain, (-) ear discharge, (-) nose pain, (-) nose congestion, (-) throat pain, (-) Throat swelling, (-) mouth pain, (-) tooth pain, (-) mouth swelling, (-) other documentation Respiratory: (-) cough, (-) orthopnea, (-) short of breath, (-) stridor, (-) wheezing, (-) other documentation Cardiovascular: (-) chest pain, (-) edema, (-) palpitations, (-) syncope, (-) dyspnea on exertion, (-) other documentation Gastrointestinal/Abdominal: (-) nausea, (-) vomiting, (-) diarrhea, (-) abdominal pain, (-) abdominal distention, (-) constipation, (-) rectal bleeding, (-) dark stool/melena, (-) other documentation Genitourinary: (+) vaginal discharge, (+) dysuria Musculoskeletal: (-) Neck pain, (-) back pain, (-) Flank Pain, (-) joint pain, (-) joint swelling, (-) muscle pain, (-) muscle stiffness, (-) gout, (-) other documentation Skin: (-) laceration, (-) contusion, (-) abrasion, (-) abscess, (-) rash, (-) change in color, (-) change in hair, (-) change in nails, (-) diaphoresis, (-) dryness, (-) other documentation Physical Exam General Appearance: (+) mild distress Orientation: (+) alert Head/Face Trauma: No Eye: right eye normal inspection, right eye PERRL, right eye EOMI; left eye abnormal EOM, left eye abnormal pupil Ear, Nose, Throat: (+) hearing grossly normal, (+) normal ENT inspection Neck: (+) normal inspection, (+) supple, (+) full range of motion Respiratory: (+) chest non-tender, (+) lungs clear Heart: (+) regular, (+) no gallop Vascular: (+) no edema, (+) normal peripheral pulse Gastrointestinal: (+) soft, (+) non-tender, (+) bowel sound present Results Laboratory and Microbiology Lab and Micro Result Laboratory Tests Test 03/07/25 04:00 White Blood Count 6.1 K/uL (4.8-10.8) Red Blood Count 3.58 MIL/uL (4.00-5.50) L Hemoglobin 10.7 g/dL (12.0-16.0) L Hematocrit 32.4 % (36-48) L Mean Corpuscular Volume 90.5 fL (79-99) Mean Corpuscular Hemoglobin 29.9 pg (27.0-33.0) Mean Corpuscular Hemoglobin Concent 33.0 g/dL (32.0-36.0) Red Cell Distribution Width 17.4 % (11.0-15.5) H Platelet Count 217 K/uL (130-400) Mean Platelet Volume 9.0 fL (7.5-10.5) Immature Granulocyte % (Auto) 0.2 % (0-1) Neutrophils (%) (Auto) 61.8 % (40.0-77.0) Lymphocytes (%) (Auto) 24.8 % (21.0-51.0) Monocytes (%) (Auto) 9.2 % (3.0-13.0) Eosinophils (%) (Auto) 3.5 % (0.0-8.0) Basophils (%) (Auto) 0.5 % (0.0-5.0) Neutrophils # (Auto) 3.8 K/uL (1.8-7.7) Lymphocytes # (Auto) 1.5 K/uL (1.0-4.8) Monocytes # (Auto) 0.6 K/uL (0.1-1.0) Eosinophils # (Auto) 0.21 K/uL (0.00-0.70) Basophils # (Auto) 0.03 K/uL (0.00-0.20) Absolute Immature Granulocyte (auto 0.01 K/uL (0-1) Nucleated Red Blood Cells 0.0 % (0.0-0.19) Urine Color LIGHT-YELLOW (YELLOW) Urine Appearance CLEAR (CLEAR) Urine pH 5.5 (5.0-8.0) Urine Specific [place] 1.014 (1.001-1.031) Urine Protein NEGATIVE mg/dL (NEGATIVE) Urine Glucose (UA) 500 mg/dL (NEGATIVE) H Urine Ketones NEGATIVE mg/dL (NEGATIVE) Urine Occult Blood NEGATIVE (NEGATIVE) Urine Nitrate NEGATIVE (NEGATIVE) Urine Bilirubin NEGATIVE mg/dL (NEGATIVE) Urine Urobilinogen 0.2 mg/dL (0.2-1.0) Urine Leukocyte Esterase 25 [place]/uL (NEGATIVE) H Urine RBC 0-1 /HPF (0-1) Urine WBC 2-5 /HPF (0-1) H Urine Squamous Epithelial Cells RARE /HPF (0-2) Urine Bacteria None /HPF (None Seen) Sodium Level 138 mmol/L (136-145) Potassium Level 3.5 mmol/L (3.5-5.1) Chloride Level 100 mmol/L (101-111) L Carbon Dioxide Level 33 mmol/L (21-32) H Blood Urea Nitrogen 19 mg/dL (7-18) H Creatinine 1.5 mg/dL (0.5-1.0) H Glomerular Filtration Rate Calc 40 mL/min (>90) Random Glucose 107 mg/dL (70-105) H Total Calcium 6.7 mg/dL (8.5-10.1) L MDM MDM: Differential diagnosis: We will do a urine analysis and also treat her for her yeast infection. I will get a CBC and a chemistry panel. Rationale: Tests considered and ordered secondary to shared decision making include: Previous outside records reviewed: Old ER visits. Risk of complication and/or morbidity or mortality of patient management: None Medications-Per medication reconciliation Need for hospitalization: Patient does meet criteria for hospitalization. Need for emergency major/minor surgery: No There are no social concerns with this patient. Prescription drug management Prescriptions will include symptomatic care Patient's prior external medical records from other ER visits were reviewed by me as indicated. Prior testing and results from previous visits were reviewed. Prior tests were taken into account with medical decision making and resource utilization, independent historian/historians were used to obtain complete medical history. I independently interpreted the test that were performed, results were reviewed by me and considered findings on radiology if ordered. Patient's laboratory studies show a normal complete white blood cell count no signs of infection. Chemistry panel shows some elevated BUN and creatinine but those seem to be the patient's baseline lab values. Patient may have a urinary tract infection I will provide antibiotics for that. I will also give her a single dose of Diflucan for her yeast infection. Her brown discharge his vaginal sloughing associated with menopause she needs to go see her draw machine operator about ED Course Orders Procedure Category Date Status Time Cbc With Differential LAB 03/07/25 Complete 03:06 Basic Metabolic Panel LAB 03/07/25 Complete 03:06 Urinalysis Profile LAB 03/07/25 Complete 03:06 Vital Signs Date Time Temp Pulse Resp B/P (MAP) Pulse Ox O2 Delivery O2 Flow Rate FiO2 03/07/25 02:23 98.1 77 16 116/72 95 Room Air 0 DX & DISP Disposition: Discharge Departure Impression: Primary Impression: Urinary catheter infection Additional Impressions: Vaginal atrophy, Vaginal yeast infection Condition: Stable Scripts Nitrofurantoin Macrocrystal (Nitrofurantoin) 100 Mg Capsule 1 CAP PO BID for 7 Days, #14 CAP 0 Refills Prov: POPEYE BHATTI MD 03/07/25 Fluconazole (Fluconazole) 150 Mg Tablet 1 TAB PO ONCE for 1 Day, #1 TAB 0 Refills Prov: POPEYE BHATTI MD 03/07/25 Additional Instructions: I think you have three conditions occurring with your genital region. One you have a urinary tract infection I have given a prescription to your pharmacy for that. To you have a yeast infection I have given sent a prescription to your pharmacy for that as well. Finally I think the brown discharge from her vagina is just atrophy associated with menopause. You need to talk to your draw machine operator about that. The rest of your labs are normal. Referrals: MATTHEW LORD MD (PCP) POPEYE BHATTI MD Mar 07, 2025 03:56
[2025-03-07 04:08] LABS: IMMATURE GRANULOCYTE ABSOLUTE 0.01 K/uL (0-1); NUCLEATED RED BLOOD CELLS 0.0 % (0.0-0.19); PLATELET COUNT (AUTO) 217 K/uL (130-400); RED BLOOD CELL COUNT(AUTO) 3.58 MIL/uL (4.00-5.50); RED CELL DISTRIBUTION WIDTH 17.4 % (11.0-15.5); WHITE BLOOD COUNT (AUTO) 6.1 K/uL (4.8-10.8)
[2025-03-07 04:16] LABS: APPEARANCE,URINE CLEAR (CLEAR); CREATININE 1.5 mg/dL (0.5-1.0); GLOMERULAR FILTR. RATE CALC 40.0 mL/min (>90); GLUCOSE, URINE (UA) 500 mg/dL (NEGATIVE); GLUCOSE,RANDOM 107.0 mg/dL (70-105); LEUKOCYTE ESTERASE ,URINE 25 Leu/uL (NEGATIVE); NITRATE,URINE NEGATIVE (NEGATIVE); OCCULT BLOOD,URINE NEGATIVE (NEGATIVE); SODIUM SERUM 138.0 mmol/L (136-145); UREA NITROGEN, BLOOD 19.0 mg/dL (7-18)
[2025-03-07 04:25] LABS: ADD UA MICROSCOPIC YES
[2025-03-07 04:27] LABS: SQUAMOUS EPITHELIAL CELL,UR RARE /HPF (0-2)
[2025-03-07 04:40] VITALS: BP 125/79; PULSE 80; RESP 18; TEMP 98.4; O2SAT 98
[2025-03-07] MEDS ORDERED: NITR100C PO (04:46)
[2025-03-07] MEDS ORDERED: FLUC150T48 PO (04:46)
[2025-03-07] MEDS ORDERED: QUET50TA PO (04:50)
== END 2025-03-07 05:06 | disposition home or self-care (01) ==
LOC: EDH 02:21
DX: T83.518A Infection and inflammatory reaction due to other urinary catheter, initial encounter (principal); B37.31 Acute candidiasis of vulva and vagina; N76.0 Acute vaginitis; N95.2 Postmenopausal atrophic vaginitis; E03.9 Hypothyroidism, unspecified; E11.9 Type 2 diabetes mellitus without complications; E78.00 Pure hypercholesterolemia, unspecified; F20.9 Schizophrenia, unspecified; F41.9 Anxiety disorder, unspecified; I10 Essential (primary) hypertension; Z79.899 Other long term (current) drug therapy; Z86.73 Personal history of transient ischemic attack (TIA), and cerebral infarction without residual deficits; Z88.2 Allergy status to sulfonamides; Z88.5 Allergy status to narcotic agent; Z88.6 Allergy status to analgesic agent; Z88.8 Allergy status to other drugs, medicaments and biological substances; Z90.89 Acquired absence of other organs
CPT/HCPCS: 36415; 80048; 81001; 85025; 99283

== ENCOUNTER 2025-03-12 02:52 | Emergency (ER) | payer MEDICARE, MEDICAID ==
[~2025-03-12] VITALS: Ht 165.1 cm; Wt 90.7 kg
[~2025-03-12 02:52] MED LIST changes: +FLUC150T48 PO; +NITR100C PO; +QUET50TA PO
--- NOTE | 2025-03-12 04:10 | ERN ---
ED Note History of Present Illness Stated Complaint: CHRONIC BACK PAIN Chief Complaint: Low Back Pain/Injury Time Seen by MD: 03:05 Dictation: This is a 59-year-old morbidly obese female who frequently visits emergency rooms with a extensive psychiatric history comes in stating that she has had chronic back pain and it was worse today so she called EMS and went to [facility]. They gave her Tylenol and as soon as she was discharged from the lobby she called EMS again to be transported to [facility] stating that she they never gave her any pain medications. He denied any bladder and bowel incontinence no difficulty in walking no falls today. She stated that she has actually been doing well with the independent living and a provider at home caring for her. She stated that the chronic pain in the lower back area she manages with muscle relaxant and ibuprofen. Temperature 97.9 pulse 83 respirations 16 blood pressure 110/60 pulse oximetry 97% on room air Her chronic medical problems have been well chronicled in charts Allergies: Coded Allergies: Sulfa (Sulfonamide Antibiotics) (Unverified Allergy, Unknown, 04/29/16) aspirin (Unverified Allergy, Unknown, 04/29/16) codeine (Unverified Allergy, Unknown, 04/29/16) diphenhydramine (Unverified Allergy, Unknown, 04/29/16) haloperidol (Unverified Allergy, Unknown, 04/29/16) morphine (Unverified Allergy, Unknown, 04/29/16) promethazine (Unverified Allergy, Unknown, 04/29/16) risperidone (Unverified Allergy, Unknown, 04/29/16) Home Meds Active Scripts Quetiapine Fumarate (Seroquel) 50 Mg Tablet, 1 TAB PO HS PRN for insomnia for 30 Days, #30 TAB 0 Refills Prov:POPEYE BHATTI MD 03/07/25 Nitrofurantoin Macrocrystal (Nitrofurantoin) 100 Mg Capsule, 1 CAP PO BID for 7 Days, #14 CAP 0 Refills Prov:POPEYE BHATTI MD 03/07/25 Fluconazole (Fluconazole) 150 Mg Tablet, 1 TAB PO ONCE for 1 Day, #1 TAB 0 Refills Prov:POPEYE BHATTI MD 03/07/25 Dicyclomine HCl (Bentyl) 20 Mg Tab, 1 TAB PO BID for irritable bowel symptoms for 10 Days, #20 TAB 0 Refills Prov:SINCERE SIN MD 10/02/24 Ondansetron (Ondansetron Odt) 4 Mg Tab.rapdis, 1 TAB PO BID PRN for nausea/vomiting for 5 Days, #10 TAB 0 Refills Prov:SINCERE SIN MD 10/02/24 Furosemide (Lasix 40Mg Tab) 40 Mg Tablet, 2 TAB PO DAILY for 10 Days, #30 TAB 0 Refills Prov:SUSAN DAILY MD 07/13/24 Loratadine (Claritin) 10 Mg Capsule, 1 CAP PO DAILY for allergy symptoms for 30 Days, #30 CAP 0 Refills Prov:SUSAN DAILY MD 07/13/24 Fluticasone Propionate (Flonase Allergy Relief) 50 Mcg/Actuation [place].susp, 2 SPRAY NS DAILY for 30 Days, #1 CANISTER 0 Refills Prov:SUSAN DAILY MD 07/13/24 Cephalexin (Cephalexin) 500 Mg Tablet, 1 TAB PO TID for 10 Days, #30 TAB 0 Refills Prov:SUSAN DAILY MD 06/30/24 Reported Medications Carboxymethyl/Glycerin/Poly80 (Refresh Optive Advanced Drops) 10 Ml Drops, 1 DROP OS DAILY, DROP 04/29/16 Cyclopentolate HCl (Cyclogyl 1% Oph Soln) 20 Drop/Ml Opsol, 1 DROP OS DAILY, DROP 04/29/16 Cholecalciferol (Vitamin D3) (Vitamin D) 2,000 Unit Tablet, 2000 UNIT PO DAILY, TAB 04/29/16 [multivitamin] No Conflict Check, 1 TAB PO DAILY 04/29/16 Esomeprazole Magnesium (Nexium) 40 Mg Capsule.dr, 40 MG PO DAILY, CAP 04/29/16 Carboxymethylcell/Hypromellose (Genteal Gel Drops) 25 Ml Drp.lq.gel, 10 G OP AD 04/29/16 Fenofibrate (Fenofibrate) 160 Mg Tablet, 160 MG PO HS, TAB 04/29/16 Polyethylene Glycol 3350 (Polyethylene Glycol 3350) 17 Gm Powd.pack, 17 GM PO DAILY, APPL 04/29/16 [prednisolone ] No Conflict Check, 1 % OS QID 1 drop os 04/29/16 Nitroglycerin (Nitrostat) 0.4 Mg Tab.subl, 0.4 MG SL AD, TAB.SL 04/29/16 [isosorbide] No Conflict Check, 30 MG PO HS 04/29/16 Valsartan (Valsartan) 80 Mg Tablet, 0.5 TAB PO DAILY, TAB 04/29/16 [place]-3 Fatty Acids/Fish Oil (Fish Oil 1,000 mg Capsule) 1 Each Capsule, 2 TAB PO BID, CAP 04/29/16 Hydrochlorothiazide (Hydrochlorothiazide) 50 Mg Tablet, 50 MG PO DAILY, TAB 04/29/16 Divalproex Sodium (Divalproex Sodium ER) 500 Mg Tab.er.24h, 3 TAB PO HS, TAB 04/29/16 Aripiprazole (Aripiprazole) 20 Mg Tablet, 20 MG PO HS, TAB 04/29/16 Buspirone HCl (Buspirone HCl) 15 Mg Tablet, 15 MG PO BID, TAB 04/29/16 Docusate Sodium (Colace) 100 Mg Capsule, 100 MG PO TID, CAP 04/29/16 Calcitriol (Calcitriol) 0.5 Mcg Capsule, 0.5 MCG PO BID, CAP 04/29/16 Ezetimibe (Zetia) 10 Mg Tablet, 10 MG PO DAILY, TAB 04/29/16 Levothyroxine Sodium (Synthroid) 175 Mcg Tablet, 175 MCG PO DAILY, TAB sat and sun. 04/29/16 Levothyroxine Sodium (Synthroid) 200 Mcg Tablet, 200 MCG PO DAILY, TAB mon-fri 04/29/16 Verapamil HCl (Verapamil ER) 240 Mg Tablet.er, 240 MG PO DAILY, TAB 04/29/16 Calcium Carbonate (Calcium) 600 Mg Tablet, 600 MG PO TID, TAB 04/29/16 Past Medical History Past Medical History: Anxiety, Bipolar, CVA, Depression, Diabetes-Type II, High Cholesterol, Heart Disease, Hypertension, Hypothyroid, Schizophrenia Additional Past Medical Hx: BLIND LEFT EYE, CHRONIC BACK PAIN Surgical History: Cholecystectomy, BTL, Unknown Surgical History Other: THYROIDECTOMY, CARDIC STENTS, L RETINAL DETACHEMENT, HERNIA Family History: Negative Social History: Negative History: Not Applicable RN Note Reviewed/Agreed w/PFSH: Yes Review of System Dictation Constitutional: Negative for fever,chills, and weight loss Eyes: Negative for injury, pain,redness, and discharge ENT: Negative for injury,pain or swelling Cardiovascular: Negative for chest pain, palpitations, and edema Respiratory: Negative for shortness of breath, cough, and wheezing, Abdomen/GI: Negative for abdominal pain, nausea, vomiting, diarrhea, and constipation Back: Negative for injury and positive for chronic low back pain : Negative for injury, bleeding and discharge MS/Extremity: Negative for injury and deformity Skin: Negative for rash, and discoloration Neuro: Negative for headache, weakness, numbness, tingling, and seizure Psych: Negative for suicide ideation, homicidal ideation, and hallucinations Initial Vital Sign VS Vital Signs Date Time Temp Pulse Resp B/P (MAP) Pulse Ox O2 Delivery O2 Flow Rate FiO2 03/12/25 02:53 97.9 83 16 110/60 97 Room Air 03/12/25 04:30 0 21 Physical Exam Dictation General: awake, alert, NAD Head/Face: Normocephalic, atraumatic Eyes: PERRL, EOMI, vision at baseline ENT: oral cavity clear, TMs clear, no signs of infection Neck: Trachea midline, supple, no nuchal rigidity Cardiovascular: RRR, normal S1/S2, No MRGs, no JVD Respiratory: CTAB, no respiratory distress, No rales or wheezes Abdomen: Soft, non-tender, non-distended, normal bowel sounds, no guarding or rebound. Skin: Warm, dry, normal turgor, no rash MS/Extremity: Pulses equal, no cyanosis, neurovascular intact, FROM no local tenderness anywhere along the spine. Neuro: COAx4, GCS 15, strength 5/5, CN 2-12 intact, normal cerebellar exam, normal gait, Psych: Normal behavior, mood, and affect normal Extremities-trace edema without any palpable cords, Homans sign is negative Results (Laboratory/Radiology) Labs Reviewed?: Yes ED Course ED Course Orders Procedure Category Date Status Time Ondansetron 4mg Inj PHA 03/12/25 Complete (Zofran 4mg Inj) 05:30 Ketorolac PHA 03/12/25 Complete Tromethamine 30mg/Ml 05:30 Ketorolac PHA 03/12/25 Complete Tromethamine 30mg/Ml 05:19 Current Medications Medications (Trade) Dose Ordered Sig/Lynette Route PRN Reason Start Time Stop Time Status Last Admin Dose Admin Ketorolac Tromethamine (toRADol) 30 mg ONCE ONCE IVP 03/12/25 05:30 03/12/25 05:31 DC 03/12/25 05:35 Ketorolac Tromethamine (toRADol) 30 mg STK-MED ONCE .ROUTE 03/12/25 05:19 03/12/25 05:24 DC Ondansetron HCl (zoFRAN 4MG INJ) 4 mg ONCE ONCE IVP 03/12/25 05:30 03/12/25 05:31 DC 03/12/25 05:35 Vital Signs Date Time Temp Pulse Resp B/P (MAP) Pulse Ox O2 Delivery O2 Flow Rate FiO2 03/12/25 06:30 80 20 122/66 96 Room Air* 0 21 03/12/25 05:51 97.7 75 20 99/60 96 Room Air* 0 21 03/12/25 04:30 97.7 75 20 95/58 96 Room Air* 0 21 03/12/25 02:53 97.9 83 16 110/60 97 Room Air We will administer medications according to the patient's complaint. Once the results are available, will review and personally interpreted the labs to rule out any acute life-threatening emergency the trach require immediate intervention and treatment. I will then re-evaluate the patient after treatment and diagnostic exams have return to determine whether the patient requires any further testing, can safely be discharged home or need further admission to hospital for additional treatment and evaluation. As soon as patient received Toradol she stated that she felt significantly improved and walked out of her room requesting to be discharged to home she already called her ride Medical Decision Making MDM MDM: Differential diagnosis-lumbago, lumbar radiculopathy, lumbar spinal stenosis, sacral ileitis Rationale: Tests considered and ordered secondary to shared decision making include: Previous outside records reviewed: Old ER visits. Risk of complication and/or morbidity or mortality of patient management: None Medications-Per medication reconciliation Need for hospitalization: Patient does not meet criteria for hospitalization. Need for emergency major/minor surgery: No There are no social concerns with this patient. Prescription drug management Prescriptions will include symptomatic care Patient's prior external medical records from other ER visits were reviewed by me as indicated. Prior testing and results from previous visits were reviewed. Prior tests were taken into account with medical decision making and resource utilization, independent historian/historians were used to obtain complete medical history. I independently interpreted the test that were performed, results were reviewed by me and considered findings on radiology if ordered. Medical management and examination interpretation discussions were had by me with other qualified healthcare professionals as indicated for the patient's care. Problem List Problem List: (1) Chronic low back pain DX & DISP Disposition: Discharge Departure Impression: Primary Impression: Chronic low back pain Condition: Stable Additional Instructions: Patient and the caregiver have been informed of all the diagnostic tests and the imaging conducted during the today's visit to the emergency room and has verbalized understanding of the results I have personally reviewed and interpreted all diagnostic exams performed here in the ER today as well as the vital signs documented by the nursing staff. The patient is now being discharged to home and should follow up with the primary care physician or the specialist as directed by the ER staff. Follow-up with primary care provider in 1 to 2 days. Take medications as directed here in the emergency room. Okay to continue home medications unless otherwise discussed during your visit in the emergency room today. Return to your nearest emergency room if symptoms worsen or if there is no improvement. Call 911 if you need immediate assistance. Take Tylenol or Motrin [id number] as needed and if no contraindications are present. Increase oral hydration. A wound culture or urine culture was ordered here in the emergency room department please follow-up with primary care provider and advise them to get repeat ports from our facility. If you had any Phillip wrap/splints that were applied here, please do not remove them until you see your primary care or specialty. Referrals: MATTHEW LORD MD (PCP) SUSAN DAILY MD Mar 12, 2025 04:10
[2025-03-12 05:51] VITALS: TEMP 97.7
[2025-03-12 06:30] VITALS: BP 122/66; PULSE 80; RESP 20; O2SAT 96
== END 2025-03-12 06:56 | disposition home or self-care (01) ==
LOC: EDH 02:52
DX: G89.29 Other chronic pain (principal); M54.50 Low back pain, unspecified; F41.9 Anxiety disorder, unspecified; E03.9 Hypothyroidism, unspecified; E11.9 Type 2 diabetes mellitus without complications; E78.00 Pure hypercholesterolemia, unspecified; F20.9 Schizophrenia, unspecified; F31.9 Bipolar disorder, unspecified; I10 Essential (primary) hypertension; Z79.890 Hormone replacement therapy; Z79.899 Other long term (current) drug therapy; Z86.73 Personal history of transient ischemic attack (TIA), and cerebral infarction without residual deficits; Z88.2 Allergy status to sulfonamides; Z88.5 Allergy status to narcotic agent; Z88.6 Allergy status to analgesic agent; Z88.8 Allergy status to other drugs, medicaments and biological substances; Z90.49 Acquired absence of other specified parts of digestive tract; Z90.89 Acquired absence of other organs; Z98.51 Tubal ligation status
CPT/HCPCS: 99284; 96374; 96375; J1885; J2405

== ENCOUNTER 2025-03-14 04:42 | Emergency (ER) | payer MEDICARE ==
[~2025-03-14] VITALS: Ht 165.1 cm; Wt 90.7 kg
--- NOTE | 2025-03-14 04:53 | ERN ---
ED Note History of Present Illness Stated Complaint: SLIP AND FALL IN SHOWER Chief Complaint: Mechanical Fall Time Seen by MD: 04:46 Dictation: This is a 59-year-old female who is very well known to all the hospitals due to multiple frequent visits comes in today stating that she was in the shower and she did not see the water and slipped and fell. But when I asked her to describe the event it was unreliable. Denied any deformities hematomas. She also denied any abrasions and ecchymosis. Patient stated that after she slipped and fell she got up and ambulated without any problems. The only complaint she has is the chronic back pain. No bladder or bowel incontinence. No blurred vision facial asymmetry diplopia motor weakness or seizure activity Temperature 98 pulse 98 respirations 16 blood pressure 145/76 with a pulse oximetry of 94% on room air GCS 15 NIH 0 Allergies: Coded Allergies: Sulfa (Sulfonamide Antibiotics) (Unverified Allergy, Unknown, 04/29/16) aspirin (Unverified Allergy, Unknown, 04/29/16) codeine (Unverified Allergy, Unknown, 04/29/16) diphenhydramine (Unverified Allergy, Unknown, 04/29/16) haloperidol (Unverified Allergy, Unknown, 04/29/16) morphine (Unverified Allergy, Unknown, 04/29/16) promethazine (Unverified Allergy, Unknown, 04/29/16) risperidone (Unverified Allergy, Unknown, 04/29/16) Home Meds Active Scripts Quetiapine Fumarate (Seroquel) 50 Mg Tablet, 1 TAB PO HS PRN for insomnia for 30 Days, #30 TAB 0 Refills Prov:POPEYE BHATTI MD 03/07/25 Nitrofurantoin Macrocrystal (Nitrofurantoin) 100 Mg Capsule, 1 CAP PO BID for 7 Days, #14 CAP 0 Refills Prov:POPEYE BHATTI MD 03/07/25 Fluconazole (Fluconazole) 150 Mg Tablet, 1 TAB PO ONCE for 1 Day, #1 TAB 0 Refills Prov:POPEYE BHATTI MD 03/07/25 Dicyclomine HCl (Bentyl) 20 Mg Tab, 1 TAB PO BID for irritable bowel symptoms for 10 Days, #20 TAB 0 Refills Prov:SINCERE SIN MD 10/02/24 Ondansetron (Ondansetron Odt) 4 Mg Tab.rapdis, 1 TAB PO BID PRN for nausea/vomiting for 5 Days, #10 TAB 0 Refills Prov:SINCERE SIN MD 10/02/24 Furosemide (Lasix 40Mg Tab) 40 Mg Tablet, 2 TAB PO DAILY for 10 Days, #30 TAB 0 Refills Prov:SUSAN DAILY MD 07/13/24 Loratadine (Claritin) 10 Mg Capsule, 1 CAP PO DAILY for allergy symptoms for 30 Days, #30 CAP 0 Refills Prov:SUSAN DAILY MD 07/13/24 Fluticasone Propionate (Flonase Allergy Relief) 50 Mcg/Actuation [place].susp, 2 SPRAY NS DAILY for 30 Days, #1 CANISTER 0 Refills Prov:SUSAN DAILY MD 07/13/24 Cephalexin (Cephalexin) 500 Mg Tablet, 1 TAB PO TID for 10 Days, #30 TAB 0 R efills Prov:SUSAN DAILY MD 06/30/24 Reported Medications Carboxymethyl/Glycerin/Poly80 (Refresh Optive Advanced Drops) 10 Ml Drops, 1 DROP OS DAILY, DROP 04/29/16 Cyclopentolate HCl (Cyclogyl 1% Ophth Soln) 20 Drop/Ml Opsol, 1 DROP OS DAILY, DROP 04/29/16 Cholecalciferol (Vitamin D3) (Vitamin D) 2,000 Unit Tablet, 2000 UNIT PO DAILY, TAB 04/29/16 [multivitamin] No Conflict Check, 1 TAB PO DAILY 04/29/16 Esomeprazole Magnesium (Nexium) 40 Mg Capsule.dr, 40 MG PO DAILY, CAP 04/29/16 Carboxymethylcell/Hypromellose (Genteal Gel Drops) 25 Ml Drp.lq.gel, 10 G OP AD 04/29/16 Fenofibrate (Fenofibrate) 160 Mg Tablet, 160 MG PO HS, TAB 04/29/16 Polyethylene Glycol 3350 (Polyethylene Glycol 3350) 17 Gm Powd.pack, 17 GM PO DAILY, APPL 04/29/16 [prednisolone ] No Conflict Check, 1 % OS QID 1 drop os 04/29/16 Nitroglycerin (Nitrostat) 0.4 Mg Tab.subl, 0.4 MG SL AD, TAB.SL 04/29/16 [isosorbide] No Conflict Check, 30 MG PO HS 04/29/16 Valsartan (Valsartan) 80 Mg Tablet, 0.5 TAB PO DAILY, TAB 04/29/16 [place]-3 Fatty Acids/Fish Oil (Fish Oil 1,000 mg Capsule) 1 Each Capsule, 2 TAB PO BID, CAP 04/29/16 Hydrochlorothiazide (Hydrochlorothiazide) 50 Mg Tablet, 50 MG PO DAILY, TAB 04/29/16 Divalproex Sodium (Divalproex Sodium ER) 500 Mg Tab.er.24h, 3 TAB PO HS, TAB 04/29/16 Aripiprazole (Aripiprazole) 20 Mg Tablet, 20 MG PO HS, TAB 04/29/16 Buspirone HCl (Buspirone HCl) 15 Mg Tablet, 15 MG PO BID, TAB 04/29/16 Docusate Sodium (Colace) 100 Mg Capsule, 100 MG PO TID, CAP 04/29/16 Calcitriol (Calcitriol) 0.5 Mcg Capsule, 0.5 MCG PO BID, CAP 04/29/16 Ezetimibe (Zetia) 10 Mg Tablet, 10 MG PO DAILY, TAB 04/29/16 Levothyroxine Sodium (Synthroid) 175 Mcg Tablet, 175 MCG PO DAILY, TAB sat and sun. 04/29/16 Levothyroxine Sodium (Synthroid) 200 Mcg Tablet, 200 MCG PO DAILY, TAB mon-thu04/29/16 Verapamil HCl (Verapamil ER) 240 Mg Tablet.er, 240 MG PO DAILY, TAB 04/29/16 Calcium Carbonate (Calcium) 600 Mg Tablet, 600 MG PO TID, TAB 04/29/16 Past Medical History Past Medical History: Anxiety, Bipolar, CVA, Depression, Diabetes-Type II, High Cholesterol, Heart Disease, Hypertension, Hypothyroid, Schizophrenia Additional Past Medical Hx: BLIND LEFT EYE, CHRONIC BACK PAIN Surgical History: Cholecystectomy, BTL, Unknown Surgical History Other: THYROIDECTOMY, CARDIC STENTS, L RETINAL DETACHEMENT, HERNIA Family History: Negative Social History: Negative History: Not Applicable RN Note Reviewed/Agreed w/PFSH: Yes Review of System Dictation Constitutional: Negative for fever,chills, and weight loss Eyes: Negative for injury, pain,redness, and discharge ENT: Negative for injury,pain or swelling Cardiovascular: Negative for chest pain, palpitations, and edema Respiratory: Negative for shortness of breath, cough, and wheezing, Abdomen/GI: Negative for abdominal pain, nausea, vomiting, diarrhea, and constipation Back: Negative for injury and positive for chronic low back pain : Negative for injury, bleeding and discharge MS/Extremity: Negative for injury and deformity Skin: Negative for rash, and discoloration Neuro: Negative for headache, weakness, numbness, tingling, and seizure Psych: Negative for suicide ideation, homicidal ideation, and hallucinations Initial Vital Sign VS Vital Signs Date Time Temp Pulse Resp B/P (MAP) Pulse Ox O2 Delivery O2 Flow Rate FiO2 03/14/25 04:46 98.1 98 16 145/76 94 Room Air 0 03/14/25 05:04 21 Physical Exam Dictation General: awake, alert, NAD morbidly obese female Head/Face: Normocephalic, atraumatic no hematoma Eyes: PERRL, EOMI, vision at baseline left eye corneal opacification ENT: oral cavity clear, TMs clear, no signs of infection Neck: Trachea midline, supple, no nuchal rigidity Cardiovascular: RRR, normal S1/S2, No MRGs, no JVD Respiratory: CTAB, no respiratory distress, No rales or wheezes Abdomen: Soft, non-tender, non-distended, normal bowel sounds, no guarding or rebound. Skin: Warm, dry, normal turgor, no rash no abrasions ecchymosis or lacerations MS/Extremity: Pulses equal, no cyanosis, neurovascular intact, FROM Neuro: COAx4, GCS 15, strength 5/5, CN 2-12 intact, normal cerebellar exam, normal gait, Psych: Normal behavior, mood, and affect normal Extremities-trace edema without any palpable cords, Homans sign is negative Results (Laboratory/Radiology) Labs Reviewed?: Yes ED Course ED Course Orders Procedure Category Date Status Time Ketorolac PHA 03/14/25 Complete Tromethamine 30mg/Ml 05:00 Current Medications Medications (Trade) Dose Ordered Sig/Lynette Route PRN Reason Start Time Stop Time Status Last Admin Dose Admin Ketorolac Tromethamine (toRADol) 30 mg ONCE ONCE IM 03/14/25 05:00 03/14/25 05:02 DC 03/14/25 05:13 Vital Signs Date Time Temp Pulse Resp B/P (MAP) Pulse Ox O2 Delivery O2 Flow Rate FiO2 03/14/25 06:17 98.8 88 20 136/54 98 Room Air* 0 21 03/14/25 05:04 98.8 93 20 138/58 100 Room Air* 0 21 03/14/25 04:46 98.1 98 16 145/76 94 Room Air 0 We will administer medications according to the patient's complaint. Once the results are available, will review and personally interpreted the labs to rule out any acute life-threatening emergency the trach require immediate intervention and treatment. I will then re-evaluate the patient after treatment and diagnostic exams have return to determine whether the patient requires any further testing, can safely be discharged home or need further admission to hospital for additional treatment and evaluation Patient has had very frequent visits to the emergency room for falls and various complaints. On my bedside evaluation neuro exam is completely normal. . 6:23 a.m. on observation here and monitoring no deterioration in clinical condition patient states she feels significantly better and her back pain is improved he has no new symptoms and wants to be discharged to home Medical Decision Making MDM MDM: Differential diagnosis: Rationale: Tests considered and ordered secondary to shared decision making include: Previous outside records reviewed: Old ER visits. Risk of complication and/or morbidity or mortality of patient management: None Medications-Per medication reconciliation Need for hospitalization: Patient does not meet criteria for hospitalization. Need for emergency major/minor surgery: No There are no social concerns with this patient. Prescription drug management Prescriptions will include symptomatic care Patient's prior external medical records from other ER visits were reviewed by me as indicated. Prior testing and results from previous visits were reviewed. Prior tests were taken into account with medical decision making and resource utilization, independent historian/historians were used to obtain complete medical history. I independently interpreted the test that were performed, results were reviewed by me and considered findings on radiology if ordered. Medical management and examination interpretation discussions were had by me with other qualified healthcare professionals as indicated for the patient's care. Problem List Problem List: (1) Fall in shower (2) Chronic low back pain (3) Anxiety (4) Hypertension (5) Schizophrenia NIH STROKE SCALE: NIH STROKE SCALE Response (Comments) Value Level of Consciousness Alert 0 Ask patient month and their age Answers both correct 0 Command to open eyes, make fist and let go Obeys both correct 0 Best gaze (horizontal eye movement) Normal 0 Visual Field Testing No Visual Field Loss 0 Facial Paresis Normal / Symmetrical 0 Motor Function - Left Arm Normal 0 Motor Function - Right Arm Normal 0 Motor Function - Left Leg Normal 0 Motor Function - Right Leg Normal 0 Limb Ataxia No Ataxia 0 Sensory-pin prick to arms, legs, trunk and face Normal 0 Best Language (describe picture, name items and read) No Aphasia 0 Dysarthria (read several words) Normal Articulation 0 Extinction and Inattention Normal 0 Total 0 DX & DISP Disposition: Discharge Departure Impression: Primary Impression: Fall in shower Additional Impressions: Chronic low back pain, Anxiety, Hypertension, Schizophrenia Condition: Stable Additional Instructions: Patient and the caregiver have been informed of all the diagnostic tests and the imaging conducted during the today's visit to the emergency room and has verbalized understanding of the results I have personally reviewed and interpreted all diagnostic exams performed here in the ER today as well as the vital signs documented by the nursing staff. The patient is now being discharged to home and should follow up with the primary care physician or the specialist as directed by the ER staff. Follow-up with primary care provider in 1 to 2 days. Take medications as dire cted here in the emergency room. Okay to continue home medications unless otherwise discussed during your visit in the emergency room today. Return to your nearest emergency room if symptoms worsen or if there is no improvement. Call 911 if you need immediate assistance. Take Tylenol or Motrin [id number] as needed and if no contraindications are present. Increase oral hydration. A wound culture or urine culture was ordered here in the emergency room department please follow-up with primary care provider and advise them to get repeat ports from our facility. If you had any Phillip wrap/splints that were applied here, please do not remove them until you see your primary care or specialty. Referrals: MATTHEW LORD MD (PCP) SUSAN DAILY MD Mar 14, 2025 04:53
[2025-03-14 06:17] VITALS: BP 136/54; PULSE 88; RESP 20; TEMP 98.8; O2SAT 98
== END 2025-03-14 06:32 | disposition home or self-care (01) ==
LOC: EDH 04:42
DX: G89.29 Other chronic pain (principal); M54.50 Low back pain, unspecified; F41.9 Anxiety disorder, unspecified; F20.9 Schizophrenia, unspecified; I10 Essential (primary) hypertension; E03.9 Hypothyroidism, unspecified; E11.9 Type 2 diabetes mellitus without complications; E78.00 Pure hypercholesterolemia, unspecified; Z79.890 Hormone replacement therapy; Z79.899 Other long term (current) drug therapy; Z86.73 Personal history of transient ischemic attack (TIA), and cerebral infarction without residual deficits; Z88.2 Allergy status to sulfonamides; Z88.5 Allergy status to narcotic agent; Z88.6 Allergy status to analgesic agent; Z88.8 Allergy status to other drugs, medicaments and biological substances; Z90.49 Acquired absence of other specified parts of digestive tract; Z90.89 Acquired absence of other organs; Z98.51 Tubal ligation status; W18.39XA Other fall on same level, initial encounter; Y93.E1 Activity, personal bathing and showering; Y92.89 Other specified places as the place of occurrence of the external cause; Y99.8 Other external cause status
CPT/HCPCS: 99283; 96372; J1885